=== PATIENT | male | born 1965 | race Caucasian/White ===

== ENCOUNTER 2023-03-28 19:04 | Inpatient (IN) | payer MEDICARE, SELFPAY ==
[2023-03-28] VITALS (19 sets, daily range): BP systolic 101–134; BP diastolic 63–92; PULSE 84–101; RESP 16–33; TEMP 36.9; O2SAT 80–97
--- NOTE | 2023-03-28 21:45 | DI.RAD_ITS ---
Exam(s) XR KNEE RT 3V AP,LAT,JACK EXAM: XR KNEE RT 3V AP,LAT,JACK CLINICAL HISTORY: Right knee pain. TECHNIQUE: 2D digital imaging was performed. COMPARISON: No exams were available for comparison FINDINGS: 3 views There is a right knee prosthesis which appears intact. No fracture or loosening. No evidence of ost eomyelitis. No osseous lesions. IMPRESSION: No fracture. Intact prosthesis. DATA REPOSITORY: RADIATION DOSE DELIVERED:
--- NOTE | 2023-03-28 21:58 | ED.GENADUL_ITS ---
Discharge Plan Disposition Patient Disposition: Admit to [facility] Discharge Details Clinical Impression: Rhabdomyolysis, Decubitus ulcer of sacral area, Right foot ulcer Admit Date/Time: 03/29/23 00:29 Admit Provider: Torrey Leach Attending Provider: Torrey Leach Primary Care Provider: Baron Barbour ED Provider: Cayden Clayton Medical Decision Making This is an unwell appearing mildly tachycardic but normothermic 57-year-old male with multiple bruises and recent ED evaluation at [facility] now with difficulty ambulating. There was reportedly concern at the care bed where patient was initially seen that he was not appropriate for placement. Given unknown baseline will obtain basic labs and chest x-ray. He has a right-sided knee scar. He is moving his knee well so I am not concerned for septic joint. He is only oriented to person and time but not place. Will obtain dry CT head given concerns for acute encephalopathy versus dementia. He has had no tonic- clonic activity to suggest seizure so I do not feel he requires an EEG. He has no nuchal rigidity to suggest meningitis. Furthermore he is normothermic. No obvious neurological deficits to suggest CVA so I do not feel patient is a candidtate for tPA. Not reportedly an alcoholic and vitals are not consistent with acute withdrawal so I am not concerned for alcohol withdrawal. Will obtain twelve-lead ECG to assess for dysrhythmia. I considered renal failure. Will obtain labs. No agitated delirium to suggest serotonin syndrome. No clonus to suggest neuroleptic malignant syndrome. No calf pain to suggest DVT. Patient does have an open ulcer on the right side of his right foot. There does not appear to be superimposed cellulitis. I considered sepsis however patient does not appear septic and has no fevers so I did not order empiric antibiotics l actate nor blood cultures. There was no reported fall today so we will defer trauma scan given duration of time since patient fell. Will obtain CK to ensure that he does not have rhabdomyolysis. No pain out of proportion to suggest necrotizing soft tissue infection. No on valproate to suggest increased risk for hyperammonemia. 11:20 PM Comprehensive metabolic panel with very mild hypokalemia. CKD. No prior for comparison. Mildly elevated BUN. Mild hyperglycemia. No anion gap and normal bicarbonate. Not consistent with DKA. Reassuring LFTs. Negative troponin. Negative acetaminophen, salicylate, and ethanol. Mildly elevated TSH will wait for reflex to free T4. Venous blood gas with no acidemia nor hypercarpia. CK pending. CBC with mild macrocytic anemia. No leukocytosis. No thrombocytopenia. Patient was seen with neurology from [facility] at [facility] via a video assessment. They noted in their assessment extreme psychomotor retardation bordering on catatonia. Differential included drug overdose though urine drug screen was reported negative, severe mood disorder and they recommended psychiatric consultation. They advised CK level. They noted lowers concern for neuroleptic malignancy syndrome secondary to no dopamine receptor blocking drugs listed. No mild clonus to suggest serotonin syndrome. They noted [employer] infection could be possible but less likely. They also noted possible nutrition deficiency syndromes and they advised IV thiamine. They also reported that an EEG would be helpful. I will order thiamine. If patient is not able to pass an ambulatory trial in the ED he will likely require hospitalization for possibility of EEG. Patient also saw psychiatry while in the ED at [facility]. Psychiatry noted that the patient was on warfarin. I will add on INR. Psychiatry noted differential includes catatonia secondary to sedative hypnotic withdrawal versus unstable psychiatric illness versus due to general medical condition. P sychiatry mentioned that the patient does not meet involuntary hold criteria. They advised lorazepam 1 mg p.o. 3 times daily for ongoing management of catatonia/anxiety. They also advised 1 mg additional lorazepam p.o. 3 times daily as needed for breakthrough catatonia symptoms. They also advised Cymbalta 60 mg p.o. daily for anxiety depression. Restarting a lower dose of bupropion XL 300 mg p.o. daily for depression. Melatonin 6 mg p.o. nightly for sleep. Would consider low-dose Zyprexa 5 mg p.o. nightly to help with psychosis. They noted concern for Parkinson's disease and to avoid haloperidol and Risperdal. They did advise pramipexole 1 mg p.o. daily for Parkinson's disease, Aricept 10 mg p.o. daily for dementia and gabapentin 600 mg p.o. 3 times daily for anxiety neuropathic pain. CK returned at 1200 concerning for possibility of early rhabdomyolysis. We will give patient 1 L of crystalloid with NS and recheck basic metabolic panel and CK at 2 AM on 03/29. 12:20 AM Patient was unable to walk in the ED. We will reach out to the hospitalist with request for hospitalization. 12:32 AM I spoke with Dr. Leach who agreed graciously to accept the patient for hospitalization. He requested maintenance fluids at 150 cc/h. I made patient a full code. Knee films with no periprosthetic fractures. CT head w/no acute process. CXR with no infiltrate. Chronic conditions affecting the care of the patient: CKD, hypertension, hypothyroidism History obtained from an outside historian: Report from [facility] External record review: [facility] EMR with complete notes from neuro & psych Diagnostic interpretations performed by me: [Per my independent interpretation chest x-ray shows:] no acute infiltrate, hypoexpanded lungs Per my independent interpretation EKG shows: Sinus tachycardia rate of 100 with interventricular conduction delay. Left axis deviation. No signs of LVH based on voltage criteria in aVL. No acute injury pattern. T wave flattening. No prior for comparison. Suspect chest wall lead reversal secondary to abnormal R wave progression. Medications: lorazepam Social determinants of health affecting disposition: advanced dementia Management discussed with: hospitalist Treatment/interventions considered: transfer to [facility] but differed give concerns for rhambo Response to therapies provided: IV fluids in the ED HPI General Date/Time Provider Initiated Documentation: 03/28/23 21:40 . HPI Narrative: Patient is a 57-year-old male with a history of borderline personality disorder depression chronic benzodiazepine use CKD essential tremors prior DVT factor V Leiden GERD hypertension hyperlipidemia and hypothyroidism along with BRIGETTE arriving after attempted placement at a local [facility] bed in [facility] following transfer from [facility]. Providers at the [facility] were concerned that the patient could not ambulate and walk and was not appropriate to go to a [facility] bed. Patient reportedly had raspy voice on arrival when he reportedly could not ambulate to enter the facility. Patient is oriented to person and time but not place. Patient reports pain in his right knee. He has reported had a right knee surgery. He denies any cough shortness of breath. He was reportedly found down prior to his arrival at [facility]. He has had no nausea no vomiting or any fevers. He denies routine tobacco, ethanol, and illicits. Related Data Home Medications Medication Instructions Recorded Confirmed acetaminophen 650 mg tablet 1,300 mg PO Q8H PRN 03/29/23 03/29/23 amitriptyline 10 mg tablet 10 mg PO QHS 03/29/23 03/29/23 aripiprazole 20 mg tablet (Abilify) 20 mg PO DAILY 03/29/23 03/29/23 bupropion HCl 450 mg 24 hr tablet, 450 mg PO DAILY 03/29/23 03/29/23 extended release cholecalciferol (vitamin D3) 50 50 mcg PO DAILY 03/29/23 03/29/23 mcg (2,000 unit) tablet cyanocobalamin (vitamin B-12) 500 500 mcg PO DAILY 03/29/23 03/29/23 mcg tablet duloxetine 60 mg capsule,delayed 60 mg PO DAILY 03/29/23 03/29/23 release finasteride 5 mg tablet 5 mg PO DAILY 03/29/23 03/29/23 gabapentin 600 mg tablet 600 mg PO TID 03/29/23 03/29/23 levocetirizine 5 mg tablet 5 mg PO QPM 03/29/23 03/29/23 levothyroxine 75 mcg tablet 75 mcg PO DAILY 03/29/23 03/29/23 lorazepam 1 mg tablet (Ativan) 1.5 mg PO TID PRN 03/29/23 03/29/23 melatonin 3 mg tablet 6 mg PO HS 03/29/23 03/29/23 metoprolol succinate 25 mg 25 mg PO DAILY 03/29/23 03/29/23 tablet,extended release 24 hr (Toprol XL) olanzapine 5 mg tablet 5 mg PO QHS 03/29/23 03/29/23 omeprazole 40 mg capsule,delayed 40 mg PO DAILY 03/29/23 03/29/23 release pramipexole 1 mg tablet 1 mg PO QHS 03/29/23 03/29/23 tamsulosin 0.4 mg capsule (Flomax) 0.4 mg PO HS 03/29/23 03/29/23 warfarin 2.5 mg tablet See Rx Instructions .Route .COMPLEX 03/29/23 03/29/23 Allergies Allergy/AdvReac Type Severity Reaction Status Date / Time No Known Allergies Allergy Verified 03/29/23 02:30 General Stated Complaint: [facility] GLENDA: 3 PFSH All Active Problems (Updated 07/14/23 @ 08:55 by Cayden Clayton MD) Decubitus ulcer of sacral area (Acute) Right foot ulcer (Acute) Hypokalemia (Acute) Dehydration (Acute) Hypothyroidism (acquired) (Chronic) Mood disorder (Chronic) History of arthroplasty (Acute) Right knee Tremor due to disorder of central nervous system (Acute) Falls frequently (Chronic) Rhabdomyolysis (Acute) Social History Smoking/Tobacco Use Status: Never Smoking risk assessment performed?: Yes Alcohol Intake: never Substance use type: does not use Housing: apartment Exam Narrative Exam Narrative: General: Chronically appearing ill patient is lying on his back with his head tilted in the air in no acute distress speaking in complete sentences. He has somewhat raspy respirations. Protecting his airway. Head: Normocephalic, atraumatic. Eye: Pupils equal, round reactive to light. Extraocular eye movements intact. No conjunctival injection. No scleral icterus. Ear, nose, mouth, throat: Grossly normal inspection. Normal voice, handling secretions normally. Neck: Trachea midline. No midline cervical spinal tenderness. Cardiovascular: Well-perfused distal extremities. Regular rate and rhythm. Respiratory: Nonlabored respiration. Clear lungs bilaterally. Back: Stage 1 sacral decubitus ulcer Gastrointestinal: Nondistended abdomen. Musculoskeletal: Diffuse ecchymoses to the left hip and buttocks. No midline thoracic nor lumbar spinal tenderness. Midline scar to right knee. Slightly limited range of motion right knee. No significant erythema. On the lateral aspect of the patient's right foot underneath a Mepilex dressing there is an approximately 1 and half centimeter open ulcerated area. No surrounding erythema. No foul-smelling nor purulent drainage. Skin: Normal for age and race, grossly normal temperature and turgor. No acute rash. Neurologic: Alert to person and time but not place. GCS 14: E4, V4, M6. No acute deficits. Moving all 4 extremities spontaneously. Psychiatric: Flat affect. No pressured speech. No suicidal nor homicidal ideation. Course Vital Signs Vital signs: Vital Signs Temperature 36.9 C 03/28/23 19:13 Pulse 97 H 03/28/23 19:13 Respiratory Rate 16 03/28/23 19:13 Blood Pressure 101/67 03/28/23 19:13 Pulse Oximetry 97 03/28/23 19:13 Temperature 36.9 C 03/28/23 19:13 Temperature Source Temporal Artery Scan 03/28/23 19:13 Pulse 101 H 03/28/23 21:31 Respiratory Rate 16 03/28/23 20:41 Respiratory Effort Normal, Non-Labored 03/28/23 20:41 Respiratory Depth Normal 03/28/23 20:41 Respiratory Pattern Normal 03/28/23 20:41 Blood Pressure 125/63 03/28/23 21:31 Blood Pressure Mean 78 03/28/23 21:31 Blood Pressure Position Sitting 03/28/23 19:13 Pulse Oximetry 91 L 03/28/23 21:07 Oxygen Delivery Method Room Air 03/28/23 19:13 Oxygen Flow Rate 0 03/28/23 19:13 Pain Level 5 03/28/23 19:13
--- NOTE | 2023-03-28 21:58 | NUR.NOTE ---
Nursing Note: Report to Stephani BUCKNER
--- NOTE | 2023-03-28 22:00 | DI.RAD_ITS ---
Exam(s) XR PORTABLE CHEST AP EXAM: XR PORTABLE CHEST AP CLINICAL HISTORY: Shortness of breath. TECHNIQUE: 2D digital imaging was performed. COMPARISON: No exams were available for comparison FINDINGS: Single AP portable view. Suboptimal inspiratory effort. Heart size is upper normal. The mediastinum is not widened. Lungs are clear. No infiltrates nor obvious pleural effusions. IMPRESSION: No acute pulmonary findings on this single AP portable view of the chest. DATA REPOSITORY: RADIATION DOSE DELIVERED:
--- NOTE | 2023-03-28 22:15 | RT.EKG_ITS ---
APPROVED REPORT Exam: Resting ECG Reason for Exam: Altered mental status Patient Location: I HR:100 bpm ECG Measurements Heart Rate 100 AXIS TX 141 P 33 QRSd 102 QRS -38 QT 340 T 89 QTc 439 Conclusion Sinus tachycardia...rate> 99 Left axis deviation...QRS axis (-30,-90) Sinus tachycardia rate of 100 with interventricular conduction delay. Left axis deviation. No signs of LVH based on voltage criteria in aVL. No acute injury pattern. T wave flattening. No prior for comparison. Suspect chest wall lead reversal secondary to abnormal R wave progression.
--- NOTE | 2023-03-28 22:15 | DI.CT_ITS ---
Exam(s) CT HEAD WO EXAM: CT HEAD WO CLINICAL HISTORY: Altered mental status. TECHNIQUE: Imaging Protocol: Axial computed tomography images with coronal and sagittal reformatted images were created and reviewed COMPARISON: No exams were available for comparison FINDINGS: There are no skull fractures. Post inflammatory retention cysts noted in left maxillary sinus. No as sociated fluid level. Milder mucosal thickening noted in the right maxillary sinus. Other paranasal sinuses are clear as are the mastoid air cells. There is no evidence of intracranial hemorrhage, mass effect, or shift of midline structures. There are no extra-axial fluid collections. The ventricles are not enlarged or shifted and there is no blo od within the ventricular system nor within the basal cisterns. IMPRESSION: No acute intracranial findings on this noninfused CT scan of the brain. Mild sinus findings as above. RADIATION DOSE DELIVERED: 886.02mGy.cm Total DLP DATA REPOSITORY: All CT scans at this facility are submitted to the National Radiology Data Registry (NRDR) Dose Index Registry (DIR) with the [employer] (A[employer]). RADIATION OPTIMIZATION: All CT scans at this facility use at least one of these dose optimization te chniques: automated exposure control; mA and/or kV adjustment per patient size (includes targeted exa ms where dose is matched to clinical indication); or iterative reconstruction.
[2023-03-28 22:39] LABS: BE (Venous) 3 mmol/L (-2-3); HCO3 (Venous) 28 mmol/L (23-28); O2 Sat (Venous) 51 %; TCO2 (Venous) 26 mmol/L (24-29); pCO2 (Venous) 49 mmHg (41-51); pH (Venous) 7.37 (7.31-7.41); pO2 (Venous) 28 mmHg
[2023-03-28 22:41] LABS: Abs Immature Grans 0.04 10^3/uL (0.0-0.06); Absolute Basophil Count 0.03 10^3/uL (0.0-0.2); Absolute Lymphocyte Count 1.42 10^3/uL (1.2-3.4); Basophils % 0.2; Eosinophils % 1.3; HCT 34.4 % (40.0-50.0); HGB 10.7 g/dL (13.5-17.5); Immature Grans % 0.3; Lymphocytes % 11.2; MCH 29.7 pg (27.0-33.0); MCHC 31.1 % (32.0-36.0); MCV 96 fL (80-95); MPV 10.5 fL (8.0-11.0); Monocytes % 5.5; Neutrophils % 81.5; Platelet Count 267 10^3/uL (130-400); RDW 13.7 % (11.8-14.1); RDW-SD 47.8 fL; WBC 12.65 10^3/uL (4.4-10.8)
[2023-03-28 22:42] LABS: Absolute Eosinophil Count 0.16 10^3/uL (0.0-0.7); Absolute Neutrophil Count 10.31 10^3/uL (1.2-6.7)
[2023-03-28 22:56] LABS: Salicylate < 2.8 mg/dL (<2.8)
[2023-03-28 22:58] LABS: Acetaminophen < 2 ug/mL (10-30)
[2023-03-28 23:01] LABS: ALT 27 U/L (16-63); AST 61 U/L (15-37); Albumin 2.2 g/dL (3.4-5.0); Alkaline Phosphatase 66 U/L (46-116); Anion Gap 8.9 mmol/L (3-11); BUN 35 mg/dL (7-18); Bilirubin, Total 0.9 mg/dL (0.2-1.0); CO2 28.1 mmol/L (21.0-32.0); CREATININE 1.8 mg/dL (0.70-1.30); Calcium 8.5 mg/dL (8.5-10.1); Chloride 104 mmol/L (98-107); Estimated GFR 43.09 (mL/min/1.73m2); Glucose 139 mg/dL (74-106); Potassium 3.4 mmol/L (3.5-5.1); Sodium 141 mmol/L (136-145); Total Protein 6.6 g/dL (6.4-8.2)
[2023-03-28 23:06] LABS: TSH (W/Ref FT4) 5.94 uIU/mL (0.36-3.74); Troponin I < 50 ng/L (<or=60)
[2023-03-28 23:08] LABS: ETHANOL BLOOD < 3.0 mg/dL (<10)
[2023-03-28 23:32] LABS: FREE T4 1.35 ng/dL (0.76-1.46)
[2023-03-28 23:33] LABS: Creatine Kinase 1204 U/L (39-308)
[2023-03-28 23:48] LABS: Prothrombin Time 10.4 sec (9.3-11.0)
[2023-03-28] MEDS: Normal Saline 1,000 ML 1000 ML IV (23:49)
[2023-03-29] VITALS (41 sets, daily range): BP systolic 110–162; BP diastolic 66–83; PULSE 79–115; RESP 18–43; TEMP 36.4–36.8; O2SAT 90–99
--- NOTE | 2023-03-29 00:06 | DI.VRAD_ITS ---
PROCEDURE INFORMATION: Exam: CT Head Without Contrast Exam date and time: 03/28/2023 11:19 PM Age: 57 years old Clinical indication: Other: Altered mental status TECHNIQUE: Imaging protocol: Computed tomography of the head without contrast. Radiation optimization: All CT scans at this facility use at least one of these dose optimization techniques: automated exposure control; mA and/or kV adjustment per patient size (includes targeted exams where dose is matched to clinical indication); or iterative reconstruction. COMPARISON: No relevant prior studies available. FINDINGS: Brain: Mild volume loss No hemorrhage. Unremarkable white matter. No mass effect. Cerebral ventricles: No ventriculomegaly. Paranasal sinuses: A polyp/retention cyst is noted in the left maxillary sinus.No fluid levels. Mastoid air cells: Visualized mastoid air cells are well aerated. Bones/joints: Unremarkable. No acute fracture. Soft tissues: Unremarkable. IMPRESSION: No acute intracranial abnormality. Dictated and Authenticated by: Thor Paulson MD. Ordering:BERLIN Rodarte MD
--- NOTE | 2023-03-29 00:07 | DI.VRAD_ITS ---
PROCEDURE INFORMATION: Exam: XR Chest Exam date and time: 03/28/2023 11:24 PM Age: 57 years old Clinical indication: Shortness of breath TECHNIQUE: Imaging protocol: Radiologic exam of the chest. Views: 1 view. COMPARISON: No relevant prior studies available. FINDINGS: Lungs: Low lung volumes. No consolidation Pleural spaces: No pleural effusion. No pneumothorax. Heart/Mediastinum: No cardiomegaly. Bones/joints: Unremarkable. Distended bowel loops in the upper and mid abdomen IMPRESSION: Expiratory technique without discrete consolidation Distended bowel loops which may represent ileus versus developing partial small bowel obstruction Dictated and Authenticated by: Thor Paulson MD. Ordering:BERLIN Rodarte MD
--- NOTE | 2023-03-29 00:08 | DI.VRAD_ITS ---
PROCEDURE INFORMATION: Exam: XR Right Knee Exam date and time: 03/28/2023 11:26 PM Age: 57 years old Clinical indication: Pain; Knee; Right; Additional info: Right knee pain TECHNIQUE: Imaging protocol: Radiologic exam of the right knee. Views: 3 views. COMPARISON: No relevant prior studies available. FINDINGS: Bones/joints: Total knee arthroplasty, grossly intact. Small joint effusion. No acute fracture or dislocation Soft tissues: Mild suprapatellar swelling IMPRESSION: Small joint effusion and mild suprapatellar swelling No radiographic evidence for hardware complication Dictated and Authenticated by: Thor Paulson MD. Ordering:BERLIN Rodarte MD
[2023-03-29] MEDS: THIAMINE 500 MG in Normal Saline 100 ML 200 MG IVPB ×3 (00:29→18:52)
[2023-03-29] MEDS: LORazepam 1 MG TAB PO ×3 (00:34→19:47)
[2023-03-29 01:00] LABS: Abs Immature Grans 0.04 10^3/uL (0.0-0.06); Absolute Basophil Count 0.03 10^3/uL (0.0-0.2); Absolute Eosinophil Count 0.19 10^3/uL (0.0-0.7); Absolute Lymphocyte Count 1.83 10^3/uL (1.2-3.4); Basophils % 0.2; Eosinophils % 1.5; HCT 31.3 % (40.0-50.0); HGB 9.8 g/dL (13.5-17.5); Immature Grans % 0.3; Lymphocytes % 14.6; MCH 30.1 pg (27.0-33.0); MCHC 31.3 % (32.0-36.0); MCV 96 fL (80-95); MPV 10.9 fL (8.0-11.0); Monocytes % 5.6; Neutrophils % 77.8; Platelet Count 264 10^3/uL (130-400); RBC 3.26 10^6/uL (4.36-5.78); RDW 13.7 % (11.8-14.1); RDW-SD 48.3 fL; WBC 12.52 10^3/uL (4.4-10.8)
[2023-03-29 01:01] LABS: Absolute Neutrophil Count 9.74 10^3/uL (1.2-6.7)
--- NOTE | 2023-03-29 01:10 | HPE_ITS ---
Date of service: 03/29/23 Time of Service: 01:10 Assessment and Plan Assessment and plan (1) Rhabdomyolysis: Start date: 03/29/23 Status: Acute Assessment and plan: This is a 57-year-old gentleman with frequent falls and presenting with bruising on his left side and sacral area and pubic area as well as an elevated CPK consistent with rhabdomyolysis. He will be treated with IV hydration also appearing to be slightly dehydrated. His unsteady gait appears to be a Parkinson's-like syndrome may be secondary to long-term psychiatric meds with neurology evaluation needed. He will be admitted for IV hydration and physical therapy with occupational therapy evaluation. He is a full code. (2) Falls frequently: Status: Chronic Assessment and plan: Patient is having a progressive ambulatory disease and need to be evaluated for possible Parkinson's type syndrome. He also may have catatonic state with his psychiatric disease and time by history though this is vague. Evaluation by PT and OT. (3) Dehydration: Start date: 03/29/23 Status: Acute Assessment and plan: Patient appears to be dehydrated but no comparison creatinine is available. Gentle IV hydration with potassium supplement as needed. (4) Hypokalemia: Start date: 03/29/23 Status: Acute Assessment and plan: Mild hypokalemia with potassium supplement and trend labs. (5) Tremor due to disorder of central nervous system: Status: Acute Assessment and plan: Patient does have Parkinson's-like appearance with rigidity and cogwheeling but neurology needs to evaluate and advise. CT of the head was unrevealing. (6) Mood disorder: Status: Chronic Assessment and plan: Obtain outpatient medication list and reconcile with continued treatment through this hospital stay. This needs to be reevaluated by neurology with his advancing Parkinson's type syndrome. (7) Hypothyroidism (acquired): Status: Chronic Assessment and plan: Elevated TSH indicating possible need for adjustment of outpatient supplement which can be reviewed once medication list is reconciled. History of Present Illness History of Present Illness Chief Complaint: Frequent falls at home failing assisted living environment. Narrative: This is a 57-year-old gentleman who recently was hospitalized at [facility] because of difficulty ambulating and was placed in a nursing home where he will need to be completely independent. He chronically has difficulty with ambulation because of stiffness and unstable gait with a Parkinson's-like synd emigdio which is advancing. He is seen by Dr. Barbour [facility]. He is currently on multiple psych medications and appears to have difficulty with independent living though he is his own decision maker as best can be sorted by minimal medical records. Most of his records are at [facility]. He does have a history of right knee replacement which has a slight effusion with his falls but no other findings on x-ray. He also has a open ulcer over his right foot which appears chronic to the ED physician and can be looked at by the wound team if needed. He obviously has chronic immobility issues with pressure sores as risk. The ED physician also mentioned that he carries a diagnosis of alcoholism chronically with does not appear to be drinking daily at this time living in a supervised home. He does have extensive bruising over his buttocks and left side though no acute injury by exam. ED evaluation mostly found in rhabdomyolysis with elevated CK the patient was initiated on IV fluid resus citation for this problem. Long-term he will be a placement problem with his immobility which is chronic and advancing with his Parkinson's-like syndrome as stated. He is a full code. Review of Systems Narrative: 13 point review of systems otherwise unrevealing, unobtainable with patient's chronic psychiatric disease or stable as best can be ascertained. Patient is a minimalist in conversation. [facility] All Active Problems (Updated 03/29/23 @ 06:14 by Torrey Leach) Hypokalemia (Acute) Dehydration (Acute) Hypothyroidism (acquired) (Chronic) Mood disorder (Chronic) History of arthroplasty (Acute) Right knee Tremor due to disorder of central nervous system (Acute) Falls frequently (Chronic) Rhabdomyolysis (Acute) Social History Smoking/Tobacco Use Status: Never Smoking risk assessment performed?: Yes Alcohol Intake: never Substance use type: does not use Housing: apartment Meds Allergies and Home Medications Allergies Allergy/AdvReac Type Severity Reaction Status Date / Time No Known Allergies Allergy Verified 03/29/23 02:30 Home Medications Medication Instructions Recorded Confirmed Type acetaminophen 650 mg tablet 1,300 mg PO Q8H PRN 03/29/23 03/29/23 History amitriptyline 10 mg tablet 10 mg PO QHS 03/29/23 03/29/23 History aripiprazole 20 mg tablet (Abilify) 20 mg PO DAILY 03/29/23 03/29/23 History bupropion HCl 450 mg 24 hr tablet, 450 mg PO DAILY 03/29/23 03/29/23 History extended release cholecalciferol (vitamin D3) 50 50 mcg PO DAILY 03/29/23 03/29/23 History mcg (2,000 unit) tablet cyanocobalamin (vitamin B-12) 500 500 mcg PO DAILY 03/29/23 03/29/23 History mcg tablet duloxetine 60 mg capsule,delayed 60 mg PO DAILY 03/29/23 03/29/23 History release finasteride 5 mg tablet 5 mg PO DAILY 03/29/23 03/29/23 History gabapentin 600 mg tablet 600 mg PO TID 03/29/23 03/29/23 History levocetirizine 5 mg tablet 5 mg PO QPM 03/29/23 03/29/23 History levothyroxine 75 mcg tablet 75 mcg PO DAILY 03/29/23 03/29/23 History lorazepam 1 mg tablet (Ativan) 1.5 mg PO TID PRN 03/29/23 03/29/23 History melatonin 3 mg tablet 6 mg PO HS 03/29/23 03/29/23 History metoprolol succinate 25 mg 25 mg PO DAILY 03/29/23 03/29/23 History tablet,extended release 24 hr (Toprol XL) olanzapine 5 mg tablet 5 mg PO QHS 03/29/23 03/29/23 History omeprazole 40 mg capsule,delayed 40 mg PO DAILY 03/29/23 03/29/23 History release pramipexole 1 mg tablet 1 mg PO QHS 03/29/23 03/29/23 History tamsulosin 0.4 mg capsule (Flomax) 0.4 mg PO HS 03/29/23 03/29/23 History warfarin 2.5 mg tablet See Rx Instructions .Route .COMPLEX 03/29/23 03/29/23 History Exam Narrative Exam Narrative: General: Patient appears older than stated age, moderately obese lying in bed with a masklike facies and minimal conversation. He is alert and oriented at least to person and place. He appears to be in no acute distress but chronically ill. HEENT: Normocephalic, face with masklike facies but atraumatic. Coarsened facial features. Eyes with pupils equal and react light symmetrically, extraocu lar movement intact and sclera anicteric. Oropharynx with dry mucosa and poor dentition. Neck: Supple without JVD. Back: Stooped posture without CVA tenderness. Bruising over the sacral area bilaterally. Lungs: Fair aeration clear to oscillation percussion. Heart: Regular rate and rhythm with no murmurs or gallops appreciated. Abdomen: Obese contour, soft and nontender to palpation with no palpable hepatosplenomegaly. Bowel sounds positive all quadrants. Bruising over the pubic area above the penis. Genitalia/rectal: Normal external genitalia with circumcised penis. Full exam not performed. As mentioned bruising over pubic area. Extremities: 2+ nonpitting edema lower extremities with ulcer as mentioned over right heel by ED physician. No clubbing or cyanosis. All joints have decreased range of motion with increased rigidity and stiffness but no joint swelling. Right knee does have post TKA scar. Extensive bruising over left lower extremity without induration or fluctuance. Left knee and hip have passive range of motion without tenderness. Skin: Extensive bruising as above, pale, warm and dry. Fair turgor. Neuro: Cranial nerves II through XII gross intact. No focalizing motor deficits but patient has decreased voluntary movement of her upper and lower extremities with almost cogwheel type rigidity with movement of larger joints and increased tone. No tremor at rest with patient having intentional tremor and stiffness with attempted movement. Several testing not performed patient examined in bed but patient states that he is very unstable with gait and falls. Romberg is obviously positive by history. Psych: Flattened affect with depressed mood. No abnormal thought processes manifest with patient at the moment in conversation. Remote and recent memory not testable with patient giving minimal history during exam. He does not know his present living situation and his PCPs name. Results Imaging Imaging Studies: Exam: CT Head Without Contrast Exam date and time: 03/28/2023 11:19 PM Age: 57 years old Clinical indication: Other: Altered mental status TECHNIQUE: Imaging protocol: Computed tomography of the head without contrast. Radiation optimization: All CT scans at this facility use at least one of these dose optimization techniques: automated exposure control; mA and/or kV adjustment per patient size (includes targeted exams where dose is matched to clinical indication); or iterative reconstruction. COMPARISON: No relevant prior studies available. FINDINGS: Brain:? Mild volume loss No hemorrhage. Unremarkable white matter. No mass effect. Cerebral ventricles: No ventriculomegaly. Paranasal sinuses: A polyp/retention cyst is noted in the left maxillary sinus.No fluid levels. Mastoid air cells: Visualized mastoid air cells are well aerated. Bones/joints: Unremarkable. No acute fracture. Soft tissues: Unremarkable. IMPRESSION: No acute intracranial abnormality. Exam: XR Chest Exam date and time: 03/28/2023 11:24 PM Age: 57 years old Clinical indication: Shortness of breath TECHNIQUE: Imaging protocol: Radiologic exam of the chest. Views: 1 view. COMPARISON: No relevant prior studies available. FINDINGS: Lungs:? Low lung volumes.? No consolidation Pleural spaces: No pleural effusion. No pneumothorax. Heart/Mediastinum: No cardiomegaly. Bones/joints: Unremarkable. Distended bowel loops in the upper and mid abdomen IMPRESSION: Expiratory technique without discrete consolidation Distended bowel loops which may represent ileus versus developing partial small bowel obstruction Exam: XR Right Knee Exam date and time: 03/28/2023 11:26 PM Age: 57 years old Clinical indication: Pain; Knee; Right; Additional info: Right knee pain TECHNIQUE: Imaging protocol: Radiologic exam of the right knee. Views: 3 views. COMPARISON: No relevant prior studies available. FINDINGS: Bones/joints:? Total knee arthroplasty, grossly intact. Small joint effusion.? No acute fracture or dislocation Soft tissues:? Mild suprapatellar swelling IMPRESSION: Small joint effusion and mild suprapatellar swelling No radiographic evidence for hardware complication Labs 03/29/23 00:18 03/29/23 02:40 Labs: Laboratory Results - last 24 hr 03/28/23 03/28/23 03/28/23 22:33 22:33 22:33 WBC 12.65 H RBC 3.60 L Hgb 10.7 L Hct 34.4 L MCV 96 H MCH 29.7 MCHC 31.1 L RDW 13.7 Plt Count 267 MPV 10.5 Immature Gran % 0.3 Neutrophils % 81.5 Lymphocytes % 11.2 Monocytes % 5.5 Eosinophils % 1.3 Basophils % 0.2 Nucleated RBC % 0.0 Absolute Neutrophils 10.31 H Absolute Lymphocytes 1.42 Absolute Monocytes 0.70 Absolute Eosinophils 0.16 Absolute Basophils 0.03 PT INR VBG pH VBG pCO2 VBG pO2 VBG HCO3 VBG Total CO2 VBG O2 Saturation VBG Base Excess Sodium 141 Potassium 3.4 L Chloride 104 Carbon Dioxide 28.1 Anion Gap 8.9 BUN 35 H Creatinine 1.8 H Est GFR (CKD-EPI 2020) 43.09 Glucose 139 H Calcium 8.5 Total Bilirubin 0.9 AST 61 H ALT 27 Alkaline Phosphatase 66 Creatine Kinase 1204 H Troponin I < 50 Total Protein 6.6 Albumin 2.2 L TSH 5.94 H Free T4 1.35 Salicylates Acetaminophen Ethyl Alcohol < 3.0 03/28/23 03/28/23 03/28/23 22:33 22:33 22:33 WBC RBC Hgb Hct MCV MCH MCHC RDW Plt Count MPV Immature Gran % Neutrophils % Lymphocytes % Monocytes % Eosinophils % Basophils % Nucleated RBC % Absolute Neutrophils Absolute Lymphocytes Absolute Monocytes Absolute Eosinophils Absolute Basophils PT 10.4 INR 1.0 VBG pH 7.37 VBG pCO2 49 VBG pO2 28 VBG HCO3 28 VBG Total CO2 26 VBG O2 Saturation 51 VBG Base Excess 3 Sodium Potassium Chloride Carbon Dioxide Anion Gap BUN Creatinine Est GFR (CKD-EPI 2020) Glucose Calcium Total Bilirubin AST ALT Alkaline Phosphatase Creatine Kinase Troponin I Total Protein Albumin TSH Free T4 Salicylates < 2.8 Acetaminophen < 2 Ethyl Alcohol 03/29/23 00:18 WBC 12.52 H RBC 3.26 L Hgb 9.8 L Hct 31.3 L MCV 96 H MCH 30.1 MCHC 31.3 L RDW 13.7 Plt Count 264 MPV 10.9 Immature Gran % 0.3 Neutrophils % 77.8 Lymphocytes % 14.6 Monocytes % 5.6 Eosinophils % 1.5 Basophils % 0.2 Nucleated RBC % 0.0 Absolute Neutrophils 9.74 H Absolute Lymphocytes 1.83 Absolute Monocytes 0.70 Absolute Eosinophils 0.19 Absolute Basophils 0.03 PT INR VBG pH VBG pCO2 VBG pO2 VBG HCO3 VBG Total CO2 VBG O2 Saturation VBG Base Excess Sodium Potassium Chloride Carbon Dioxide Anion Gap BUN Creatinine Est GFR (CKD-EPI 2020) Glucose Calcium Total Bilirubin AST ALT Alkaline Phosphatase Creatine Kinase Troponin I Total Protein Albumin TSH Free T4 Salicylates Acetaminophen Ethyl Alcohol Last Vital Signs Temp 36.9 C 03/28/23 19:13 Pulse 98 H 03/28/23 23:00 Resp 37 H 03/29/23 01:00 BP 134/69 03/28/23 23:00 Pulse Ox 92 03/28/23 23:50 Time Spent Time spent with Patient: >75 minutes Time was spent: preparing to see the patient(eg.review tests), obtaining and/or reviewing separately otained hiistory, ordering medications,tests, procedures, referring, communicating with other health career resource specialist, indepentently interpreting results and care coordination
--- NOTE | 2023-03-29 01:22 | NUR.NOTE ---
med rec line used. high census.Nursing Note:
[2023-03-29] MEDS: Normal Saline 1,000 ML 150 ML IV (01:30)
--- NOTE | 2023-03-29 02:49 | TELEP.MEDR_ITS ---
Date of service: 03/29/23 [facility]: [facility] Allergies Allergies: No Known Allergies Allergy (Verified 03/29/23 02:30) Interview Person Interviewed: * Discharged summary and MAR (03/28/23) from [facility] Quality Quality of Interview/Accuracy of Medication List: Excellent Sources Sources used to compile medication list: [facility] Medication List, MAR, SureScripts and Other Changes made to Home Medication List: ADDITIONS: * Gabapentin 600mg PO TID * Flomax 0.4mg PO HS * Warfarin 2.5mg on Mon,Wed, Sat and 5mg on ,,Sat, and Sun * Vitamin D 2000 units PO daily * Vitamin B12 500mcg PO daily * Omeprazole 40mg PO daily * Bupropion XL 400mg PO daily * Pramipexole 1mg PO HS * Toprol XL 25mg PO daily * Melatonin 6mg PO HS * levothyroxine 75mcg PO daily * Olanzapine 5mg PO HS * Duloxetine 60mg PO daily (decreased from previous dose of 90mg daily) * Finasteride 5mg PO daily * Levocetirizine 5mg PO HS * Ativan 1.5mg PO TID anxiety (increased from previous dose of 1mg PO TID PRN) * Tylenol 1300mg PO Q8H PRN * Amitriptyline 10mg PO HS * Abilify 20mg PO HS (increased from previous dose of 10mg HS) DELETIONS: * none CHANGES: * none Additional Notes Additional Notes: * none Recommended Changes Recommended Changes(reason for recommendation): * none Attestation: The home medication list is now updated to the best of my knowledge and is ready to be reconciled by the provider. Please contact the [facility] Medication Reconciliation Pharmacist at for any questions.
--- NOTE | 2023-03-29 02:49 | TELEP.MEDREC ---
Date of service: 03/29/23 Time of Service: 02:50 Telepharmacy Home Med Rec Allergies Allergies: No Known Allergies Allergy (Verified 03/29/23 02:30) Interview Person Interviewed: Discharged summary and MAR (03/28/23) from [facility] Quality Quality of Interview/Accuracy of Medication List: Excellent Sources Sources used to compile medication list: [facility] Medication List, MAR, SureScripts and Other Changes made to Home Medication List: ADDITIONS: Gabapentin 600mg PO TID Flomax 0.4mg PO HS Warfarin 2.5mg on Mon,Wed, Sat and 5mg on ,,Sat, and Sun Vitamin D 2000 units PO daily Vitamin B12 500mcg PO daily Omeprazole 40mg PO daily Bupropion XL 400mg PO daily Pramipexole 1mg PO HS Toprol XL 25mg PO daily Melatonin 6mg PO HS levothyroxine 75mcg PO daily Olanzapine 5mg PO HS Duloxetine 60mg PO daily (decreased from previous dose of 90mg daily) Finasteride 5mg PO daily Levocetirizine 5mg PO HS Ativan 1.5mg PO TID anxiety (increased from previous dose of 1mg PO TID PRN) Tylenol 1300mg PO Q8H PRN Amitriptyline 10mg PO HS Abilify 20mg PO HS (increased from previous dose of 10mg HS) DELETIONS: none CHANGES: none Additional Notes Additional Notes: none Recommended Changes Recommended Changes(reason for recommendation): none Attestation: The home medication list is now updated to the best of my knowledge and is ready to be reconciled by the provider. Please contact the [facility] Medication Reconciliation Pharmacist at for any questions.
[2023-03-29 03:13] LABS: Anion Gap 7.7 mmol/L (3-11); BUN 34 mg/dL (7-18); CO2 23.3 mmol/L (21.0-32.0); CREATININE 1.5 mg/dL (0.70-1.30); Calcium 8.3 mg/dL (8.5-10.1); Chloride 107 mmol/L (98-107); Estimated GFR 53.63 (mL/min/1.73m2); Glucose 122 mg/dL (74-106); Potassium 3.4 mmol/L (3.5-5.1); Sodium 138 mmol/L (136-145)
[2023-03-29 03:17] LABS: Creatine Kinase 1094 U/L (39-308)
[2023-03-29 03:21] LABS: Troponin I < 50 ng/L (<or=60)
[2023-03-29 04:53] LABS: C Diff PCR Negative (Negative)
[2023-03-29] MEDS: Heparin 5,000 UNITS/ML VIAL 5000 UNITS SC ×3 (05:39→22:44)
[2023-03-29 06:23] LABS: HCT 28.6 % (40.0-50.0); HGB 9.1 g/dL (13.5-17.5); MCH 30.5 pg (27.0-33.0); MCHC 31.8 % (32.0-36.0); MCV 96 fL (80-95); MPV 10.8 fL (8.0-11.0); Platelet Count 221 10^3/uL (130-400); RBC 2.98 10^6/uL (4.36-5.78); RDW 13.8 % (11.8-14.1); RDW-SD 48.6 fL; WBC 10.71 10^3/uL (4.4-10.8)
[2023-03-29 06:39] LABS: ALT 24 U/L (16-63); AST 57 U/L (15-37); Albumin 2.1 g/dL (3.4-5.0); Alkaline Phosphatase 61 U/L (46-116); Anion Gap 6.3 mmol/L (3-11); BUN 31 mg/dL (7-18); Bilirubin, Total 0.9 mg/dL (0.2-1.0); CO2 28.7 mmol/L (21.0-32.0); CREATININE 1.5 mg/dL (0.70-1.30); Calcium 8.2 mg/dL (8.5-10.1); Chloride 107 mmol/L (98-107); Estimated GFR 53.63 (mL/min/1.73m2); Glucose 122 mg/dL (74-106); Magnesium 1.9 mg/dL (1.8-2.4); Sodium 142 mmol/L (136-145); Total Protein 6.1 g/dL (6.4-8.2)
[2023-03-29 06:52] LABS: Creatine Kinase 1118 U/L (39-308)
--- NOTE | 2023-03-29 06:58 | NUR.NOTE ---
Pt admitted with Rhabdo, falls, weakness. Bruises present on lower back, leg leg, left groin. Duoderm present on right hip. Pt was inc 2 l;arge bm's overnight. c-diff sample sent and it was negative. vss, afebrile. ivf infusing. bed alarm on. SR on tele
--- NOTE | 2023-03-29 08:31 | IN_ITS ---
PT Notes Visit Reasons: Rhabdomyolysis Inpatient Physical Therapy Evaluation Date: 03/29/23 Referring Doctor: Dr. Leach PT Orders: PT CONSULT: limited abiltiy to ambulate Precautions: fall Patient Profile/Admitting Diagnosis: Patient admitted 03/28/23 due to weakness and imbalance. Medical workup ongoing. Social History/Home Situation: Patient reports that he lives in a trailer in [place] by himself. He has been working towards moving into a jail, where he needs to be independent with his mobility. He has a walker, but unclear how consistently he's been using this and for how long. He has a case management specialist that he works with to address his needs. Equipment Owned/DME: [facility] Subjective: Jarad states that he's always gotten around independently. He's noticed increasing difficulty walking over the past several weeks. He's had 2-3 falls, the last one while just walking down the hallway. States that he feels shaky and weak. Objective: General Observation: Resting in bed with IV in LUE. Telemetry in place. No additional lines. Mental Status: A&Ox3. Provides vague history. Flat affect. Pain: right sided neck pain, unable to quantify. Feels stiff. ROM: Right Upper Extremity: Shoulder flexion 120*. Elbow motion lacks 10* extension, otherwise WFL. Left Upper Extremity: Shoulder flexion 135*. Elbow motion lacks 10* extension, o therwise WFL. Right Lower Extremity: Grossly WFL Left Lower Extremity: Grossly WFL Strength: Right Upper Extremity: Shoulder flexion 3-/5. Biceps 4-/5. Triceps 4-/5. Director Religious Education weak but equal. Left Upper Extremity: Shoulder flexion 3-/5. Biceps 4-/5. Triceps 4-/5. Director Religious Education weak but equal. Right Lower Extremity: Hip flexion 4/5. Quads 4/5. Ankle DF 4+/5. Left Lower Extremity: Hip flexion 4/5. Quads 4/5. Ankle DF 4/5. Sensation: intact distally. He does have Mepilex bandage in place at the base of the 5th metatarsal on the right. Scabbed wound in same area on the left. Bed Mobility/Transfers: supine-sit: supervision, with increased time to perform sit-stand: mod A, with increased time to perform and cues for technique and amplitude of movement stand-sit: CGA, with poorly controlled descent Gait: Ambulates 6' with FWW, mod A a the trunk. Demonstrates ataxia during ambulation, with requirement of trunk support throughout. Balance: Static Sitting: good Dynamic Sitting: fair Static Standing: fair Dynamic Standing: poor Coordination: impaired with rapid alternating movements of LEs>UEs Heel to Calderon: impaired bilat Thumb to Digit Tapping: poor accuracy and increasing tremor Visual Tracking WNL Saccades: normal Special Tests: Mobility Limitations Standardized Measure [facility]-PAC 6 clicks Basic Mobility Inpatient Short Form: Raw Score: 19 CMS Score: 42% impairment Informed Consent/Education: Patient instructed in purpose of PT consult and plan of care. Treatment: Today's session consisted of evaluation, followed by treatment as noted below. Discussed appropriate treatment planning, with patient verbalizing agreement. Initial Evaluation (35402) Therapeutic Exercises ([id number]): Instructed in sitting exercises for completion between PT sessions: seated november x 10 LAQ x 10 heel raises (seated) x 10 punch ups x 10 Sit to stand x 3, mod A Assessment: Patient is a 57 year old male referred to physical therapy services with the diagnosis of limited ability to ambulate. Patient presents with clinical signs and symptoms consistent with gait and balance impairments, as demonstrated by the following impairment level findings: 1. Decreased UE strength 2. Decreased LE strength 3. Decreased balance 4. gait impairments 5. bradykinesia Impairments are contributing to the following functional limitations: 1. gait impairments 2. high fall risk 3. unable to transfer independently 4. unable to ambulate independently Patient is assessed as Moderate 30939 complexity based on the following: History: Patient is a 57 year old male presenting with insidious onset imbalance and gait impairments. He demonstrates global weakness and bradykinesia, with question of underlying Parkinson's disease. Patient is a poor historian, however it sounds as though his mobility has declined somewhat suddenly. Discharge planning will be largely dependent medical prognosis; he is not safe to ambulate independently at this time, and may require SNF vs remote computer terminal operator placement if progressive conditions are identified. Examination: functional limitations noted above Presentation: evolving Decision Making: moderate complexity Goals: Goals X1 week 1. Supine-Sit: supervision 2. Sit-Supine : supervision 3. Sit-Stand : supervision 4. Stand-Sit : supervision 5. Bed-Chair : supervision with FWW 6. Chair-Bed : supervision with FWW 7. Gait : supervision with FWW x 50' 8. Stairs : supervision x 5 steps with bilat rails Plan of Care/Treatment Plan: 1-2x/day, 7 days/week x 1 week. Plan of care has been reviewed with the MOBILE QA TESTER providing the service under Physical Therapy direction. Initiate Physical Therapy intervention for strengthening, bed mobility, transfers, gait, stairs, balance training, use of assistive device. DISCHARGE RECOMMENDATIONS: SNF versus LTC based on ability to participate and progress TREATMENT CODE/TIME: 84579, 02241, 8:00-8:35 Nichelle Martin, PT, DPT [facility] All Active Problems (Updated 03/29/23 @ 08:55 by Cayden Clayton MD) Decubitus ulcer of sacral area (Acute) Right foot ulcer (Acute) Hypokalemia (Acute) Dehydration (Acute) Hypothyroidism (acquired) (Chronic) Mood disorder (Chronic) History of arthroplasty (Acute) Right knee Tremor due to disorder of central nervous system (Acute) Falls frequently (Chronic) Rhabdomyolysis (Acute)
[2023-03-29] MEDS: POTASSIUM CHLORIDE 10 MEQ/100 ML BAG 100 MEQ IVPB (08:38)
[2023-03-29] MEDS: Lactated Ringers 1,000 ML 200 ML IV ×2 (08:38→14:02)
[2023-03-29] MEDS: Omeprazole 20 MG CAPCR 40 MG PO (08:40)
[2023-03-29] MEDS: buPROPion-XL 150 MG TABCR 450 MG PO (08:40)
[2023-03-29] MEDS: Levothyroxine 75 MCG TAB PO (08:40)
[2023-03-29] MEDS: LORazepam 1 MG TAB 1.5 MG PO (08:41)
[2023-03-29] MEDS: DULoxetine 30 MG CAP 60 MG PO (08:41)
[2023-03-29] MEDS: Cholecalciferol (Vitamin D3) 1,000 UNIT TAB 2000 UNITS PO (08:42)
[2023-03-29] MEDS: Metoprolol CR 25 MG TABCR PO (08:42)
[2023-03-29] MEDS: Gabapentin 600 MG TAB PO ×3 (08:42→19:35)
[2023-03-29] MEDS: Cyanocobalamin 500 MCG TAB PO (08:42)
[2023-03-29] MEDS: Finasteride 5 MG TAB PO (08:42)
[2023-03-29] MEDS: Potassium Chloride 10 MEQ CAPCR 20 MEQ PO ×4 (08:42→19:36)
--- NOTE | 2023-03-29 09:33 | PDOC.CMIN ---
Date of service: 03/29/23 Time of Service: 09:40 Care Management Initial Assmt Initial Assessment REASON FOR HOSPITALIZATION:: Rhabdomyolysis PREVIOUS FUNCTIONAL STATUS/SOCIAL/FAMILY SUPPORTS:: Jarad lives in [place], alone. 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 He stated that his father also lives in [place]. Jarad reported that prior to his recent hospitalization at [facility], he had been independent with ADL's. CURRENT FUNCTIONAL STATUS:: Jarad was sitting up in his chair when CM met with him. He stated that he is feeling ok today. He reported that he was transported to the Care Bed, but was not accepted there, and he was then transported to [facility] in [facility]. From there he went to the ED, and was admitted overnight. He worked with PT today, who recommended SNF for short term rehab. He stated that he would prefer to be in the [place] area for rehab, and referrals were sent to [facility] and [facility], at his request. CM will connect with his TEMPORARY ADMINISTRATIVE ASSISTANT therapeutic case manager to discuss his discharge plans and make recommendations for shelter planning. CM will continue to follow. ADVANCE DIRECTIVES:: On file; Shaheen Brown (father) listed as HCA; Suad (sister) listed as alternate HCA. Has patient been provided with info about the portal/API?: Yes Did the patient sign up for the portal?: No CODE STATUS:: Full Code INSURANCE COVERAGE / FINANCIAL ISSUES:: [facility] CURRENT HOME/COMMUNITY SERVICES/EQUIPMENT:: TEMPORARY ADMINISTRATIVE ASSISTANT- [place] PRIMARY CARE PHYSICIAN:: Baron Barbour POTENTIAL DISCHARGE NEEDS:: Evaluations for further needs, follow up appointments. PATIENT/FAMILY EDUCATION NEEDS:: Review discharge instructions and limitations, discussion of self care needs including ask me three. ANTICIPATED BARRIERS TO DISCHARGE:: Possible SNF placement; [facility] primary insurance with no secondary TRANSPORTATION:: Dependent on disposition PLAN:: Anticipate Jarad will return home vs SNF once medically cleared. His transportation will depend on his disposition, which is unclear at this time. He will follow up with his PCP and discharge plan of care. CM will continue to follow. PFSH All Active Problems (Updated 03/29/23 @ 08:55 by Cayden Clayton MD) Decubitus ulcer of sacral area (Acute) Right foot ulcer (Acute) Hypokalemia (Acute) Dehydration (Acute) Hypothyroidism (acquired) (Chronic) Mood disorder (Chronic) History of arthroplasty (Acute) Right knee Tremor due to disorder of central nervous system (Acute) Falls frequently (Chronic) Rhabdomyolysis (Acute) Social History Smoking/Tobacco Use Status: Never Smoking risk assessment performed?: Yes Alcohol Intake: never Substance use type: does not use Housing: apartment
[2023-03-29] MEDS: Acetaminophen 325 MG TAB PO ×2 (10:28→16:27)
[2023-03-29 14:40] LABS: Creatine Kinase 916 U/L (39-308); Potassium 3.5 mmol/L (3.5-5.1)
[2023-03-29] MEDS: Cetirizine 10 MG TAB PO (19:35)
--- NOTE | 2023-03-29 22:58 | NUR.NOTE ---
Nursing Note: Pt was found with breathing difficulties , lungs sounded crackle ( was heard from the doorway) and moist ,O2 sat in %75 with RA. applied nonbreather mask /16 liter oxygen. O2 sat came up to 95% after applying non breather masK , pt was at ease breathing . charge nurse was informed, VS are WNL. Provider at the bedside.
--- NOTE | 2023-03-29 23:00 | DI.RAD_ITS ---
Exam(s) XR PORTABLE CHEST AP EXAM: XR PORTABLE CHEST AP CLINICAL HISTORY: decrease in oxygen saturation. TECHNIQUE: 2D digital imaging was performed. COMPARISON: CR,XR XR PORTABLE CHEST AP from 03/28/2023 FINDINGS: Single AP portable view. Suboptimal inspiratory effort. Heart size is upper normal. The mediastinum is not widened. Increased markings noted throughout lung fuentes bilaterally which are probably exaggerated by less th an optimal inspiratory effort. No obvious pleural effusions. Increased left lower lobe retrocardiac markings are probably vascular and appear unchanged from previous. IMPRESSION: As above. Recommend nonportable PA and lateral views when clinically possible. Alternatively CT sca n. DATA REPOSITORY: RADIATION DOSE DELIVERED:
[2023-03-29] MEDS: Furosemide 40 MG/4 ML VIAL IVP (23:19)
[2023-03-29 23:26] LABS: HGB 10.1 g/dL (13.5-17.5); MCH 30.3 pg (27.0-33.0); MCHC 31.6 % (32.0-36.0); MCV 96 fL (80-95); MPV 10.2 fL (8.0-11.0); Platelet Count 240 10^3/uL (130-400); RBC 3.33 10^6/uL (4.36-5.78); RDW 13.6 % (11.8-14.1); RDW-SD 47.8 fL; WBC 10.45 10^3/uL (4.4-10.8)
[2023-03-29 23:28] LABS: BE (Venous) -4 mmol/L (-2-3); HCO3 (Venous) 23 mmol/L (23-28); pCO2 (Venous) 46 mmHg (41-51); pO2 (Venous) 140 mmHg
[2023-03-29 23:30] LABS: Lactate 0.6 mmol/L (0.6-1.4)
--- NOTE | 2023-03-29 23:30 | RT.EKG_ITS ---
APPROVED REPORT Exam: Resting ECG Reason for Exam: respiratory symptoms Patient Location: I HR:108 bpm ECG Measurements Heart Rate [address] 133 P 31 QRSd 103 QRS -34 QT 326 T 53 QTc 437 Conclusion Sinus tachycardia...rate> 99 Probable left atrial enlargement...P >50mS, <-0.10mV V1 Left axis deviation...QRS axis (-30,-90) Abnormal R-wave progression, late transition...QRS area<0 in V5/V6 Min[address] depression, lateral leads...ST <-0.04mV, I aVL V5 V6 Baseline wander in lead(s) V1,V2
[2023-03-29 23:51] LABS: NT-proBNP 1051 pg/mL (<300); Troponin I < 50 ng/L (<or=60)
[2023-03-30] VITALS (98 sets, daily range): BP systolic 105–143; BP diastolic 45–79; PULSE 92–109; RESP 8–36; TEMP 36.1–37.3; O2SAT 93–98
--- NOTE | 2023-03-30 | PGE_ITS ---
Date of Service Date of service: 03/29/23 Time of Service: 23:10 Assessment and Plan Assessment and plan (1) Pulmonary edema: Start date: 03/29/23 Status: Acute Assessment and plan: Patient has been on 200 cc an hour about her rigors and now Acute pulmonary edema is responding slowly to IV Lasix 40 mg. His blood pressure is stable and I will give another dose of 40 mg Lasix with Izquierdo catheter in place monitoring diuresis. IV fluids will be saline lock for now. Patient is off home medication which has not including diuretics. Monitor labs with IV saline lock overnight and trend CPK. He may need gentle IV fluids with ongoing IV Lasix to clear his rhabdomyolysis and avoid pulmonary edema. Echocardiogram should be obtained when available. I spent 40 minutes with the patient bedside evaluating and ordering labs, imaging and EKG as well as reviewing chest x-ray with adjustment of therapy and high risk of acute decompe nsation during this critical care time. I attended no the patient during this period and educated full attention to this high priority patient acutely decompensating. (2) Rhabdomyolysis: Status: Acute Assessment and plan: Trend labs off IV fluid resuscitation and reinitiate gentle IV fluid resuscitation with Lasix IV if needed to clear CPK. (3) Dehydration: Status: Acute Assessment and plan: Resolved with patient fluid overloaded. IV saline lock for now and adjust IV fluids with diuresis if needed for clearing rhabdomyolysis. (4) Hypokalemia: Status: Acute Assessment and plan: Monitor and replete as needed. Subjective Subjective Patient reports: shortness of breath Interval history since last seen: This is a 57-year-old gentleman with debilitated state of health including weakness with frequent falls and bruising over the left side admitted with rhabdomyolysis and aggressively treated with IV fluids who suddenly became short of breath and tachypneic decreased responsiveness. He is on multiple psychiatric meds which could be sedating but his tachypnea was sudden onset with no complaints of chest pain. He was opening his eyes to aggressive tactile stimulus and recognizing his caretakers and where he was. He denied any chest pain but was extremely tachypneic and as stated diaphoretic. Labs were ordered and chest x-ray ordered with EKG showing no acute ST-T changes other than slight depression laterally with possible strain and sinus tachycardia. He did give 40 mg of IV Lasix with some response and slight improvement of his tachypnea and clearing of his diaphoresis. Imaging suggested fluid overload and VBG revealed metabolic acidosis with normal lactate and normal WBC. Procalcitonin was pending and is unlikely patient has an acute infection. Most likely is fluid overload from his aggressive IV fluid resuscitation of his rhabdomyolysis. He voices no complaints and stated is somewhat somnolent. This may be secondary to medication but also patient does have sleep apnea and has not been on his CPAP since hospitalized. Respiratory therapy will evaluate for this. Patient IV fluids were stopped and his IV saline locked. He did have a Izquierdo catheter placed with a draining yellow clear urine. This will be for FANY's with his acute pulm edema. He is a full code. Exam Narrative Exam Narrative: General: Patient appears somnolent but arousable with aggressive tactile stimulation, at baseline he has slowed mentation and slow monotonous tone to his voice which is persisting. He does focus fairly well when awakened. HEENT: Normocephalic, eyes with pupils equal and react light symmetrically, extraocular movement-sclera anicteric. Oropharynx with moist mucosa. Neck: Supple without JVD. Back with stooped posture no CVA tenderness. Lungs: Coarse crackles over all lung fuentes with inspiration and decreased aeration at the bases. Heart: Tachycardic rate with normal rhythm. No appreciable murmur. Abdomen: Obese contour, no tympany to percussion and soft without localizing guarding. Skin: Diaphoretic when first examined but after IV Lasix and some diuresis the patient's skin is dry, pale and warm. Extremities: Nonpitting edema lower extremities as above admission without cyanosis or clubbing. Neuro: Cranial nerves II through XII grossly intact, no focal motor deficits the patient is somnolent and appears to have metabolic encephalopathy with his acute respiratory status. Psych: Flattened affect with depressed mood chronically. Abnormal thought processes the patient is somnolent. Objective Last Vital Signs Temp 36.6 C 03/29/23 23:42 Pulse 89 03/29/23 23:42 Resp 28 H 03/29/23 23:42 BP 123/83 03/29/23 23:42 Pulse Ox 96 03/29/23 23:42 Laboratory Results - last 24 hr 03/29/23 03/29/23 03/29/23 00:18 02:40 02:40 WBC 12.52 H RBC 3.26 L Hgb 9.8 L Hct 31.3 L MCV 96 H MCH 30.1 MCHC 31.3 L RDW 13.7 Plt Count 264 MPV 10.9 Immature Gran % 0.3 Neutrophils % 77.8 Lymphocytes % 14.6 Monocytes % 5.6 Eosinophils % 1.5 Basophils % 0.2 Nucleated RBC % 0.0 Absolute Neutrophils 9.74 H Absolute Lymphocytes 1.83 Absolute Monocytes 0.70 Absolute Eosinophils 0.19 Absolute Basophils 0.03 VBG pH VBG pCO2 VBG pO2 VBG HCO3 VBG Total CO2 VBG O2 Saturation VBG Base Excess VBG Lactate Sodium 138 Potassium 3.4 L Chloride 107 Carbon Dioxide 23.3 Anion Gap 7.7 BUN 34 H Creatinine 1.5 H Est GFR (CKD-EPI 2020) 53.63 Glucose 122 H Calcium 8.3 L Magnesium Total Bilirubin AST ALT Alkaline Phosphatase Creatine Kinase 1094 H Troponin I < 50 NT-Pro-B Natriuret Pep Total Protein Albumin Stl C.difficile Tox PCR 03/29/23 03/29/23 03/29/23 03:34 06:05 06:05 WBC 10.71 RBC 2.98 L Hgb 9.1 L Hct 28.6 L MCV 96 H MCH 30.5 MCHC 31.8 L RDW 13.8 Plt Count 221 MPV 10.8 Immature Gran % Neutrophils % Lymphocytes % Monocytes % Eosinophils % Basophils % Nucleated RBC % Absolute Neutrophils Absolute Lymphocytes Absolute Monocytes Absolute Eosinophils Absolute Basophils VBG pH VBG pCO2 VBG pO2 VBG HCO3 VBG Total CO2 VBG O2 Saturation VBG Base Excess VBG Lactate Sodium 142 Potassium 3.0 L Chloride 107 Carbon Dioxide 28.7 Anion Gap 6.3 BUN 31 H Creatinine 1.5 H Est GFR (CKD-EPI 2020) 53.63 Glucose 122 H Calcium 8.2 L Magnesium 1.9 Total Bilirubin 0.9 AST 57 H ALT 24 Alkaline Phosphatase 61 Creatine Kinase Troponin I NT-Pro-B Natriuret Pep Total Protein 6.1 L Albumin 2.1 L Stl C.difficile Tox PCR Negative 03/29/23 03/29/23 03/29/23 06:05 14:15 23:20 WBC RBC Hgb Hct MCV MCH MCHC RDW Plt Count MPV Immature Gran % Neutrophils % Lymphocytes % Monocytes % Eosinophils % Basophils % Nucleated RBC % Absolute Neutrophils Absolute Lymphocytes Absolute Monocytes Absolute Eosinophils Absolute Basophils VBG pH VBG pCO2 VBG pO2 VBG HCO3 VBG Total CO2 VBG O2 Saturation VBG Base Excess VBG Lactate 0.6 Sodium Potassium 3.5 Chloride Carbon Dioxide Anion Gap BUN Creatinine Est GFR (CKD-EPI 2020) Glucose Calcium Magnesium Total Bilirubin AST ALT Alkaline Phosphatase Creatine Kinase 1118 H 916 H Troponin I NT-Pro-B Natriuret Pep Total Protein Albumin Stl C.difficile Tox PCR 03/29/23 03/29/23 03/29/23 23:20 23:20 23:20 WBC 10.45 RBC 3.33 L Hgb 10.1 L Hct 32.0 L MCV 96 H MCH 30.3 MCHC 31.6 L RDW 13.6 Plt Count 240 MPV 10.2 Immature Gran % Neutrophils % Lymphocytes % Monocytes % Eosinophils % Basophils % Nucleated RBC % Absolute Neutrophils Absolute Lymphocytes Absolute Monocytes Absolute Eosinophils Absolute Basophils VBG pH 7.30 L VBG pCO2 46 VBG pO2 140 VBG HCO3 23 VBG Total CO2 Not Applicable VBG O2 Saturation VBG Base Excess -4 L VBG Lactate Sodium Potassium Chloride Carbon Dioxide Anion Gap BUN Creatinine Est GFR (CKD-EPI 2020) Glucose Calcium Magnesium Total Bilirubin AST ALT Alkaline Phosphatase Creatine Kinase Troponin I < 50 NT-Pro-B Natriuret Pep 1051 H Total Protein Albumin Stl C.difficile Tox PCR Reviewed Pertinent PMH: Yes Objective Narrative Objective Narrative: Patient has had sleep apnea which should not be treated since admitted. Time Spent with Patient Time Spent with Patient: 35-49 minutes Time was spent: preparing to see the patient(eg.review tests), obtaining and/or reviewing separately otained hiistory, ordering medications,tests, procedures, indepentently interpreting results and care coordination
--- NOTE | 2023-03-30 00:13 | DI.VRAD_ITS ---
PROCEDURE INFORMATION: Exam: XR Chest Exam date and time: 03/29/2023 11:25 PM Age: 57 years old Clinical indication: Dyspnea and other: Decrease in oxygen saturation TECHNIQUE: Imaging protocol: Radiologic exam of the chest. Views: 1 view. COMPARISON: XR PORTABLE CHEST AP 03/28/2023 11:24 PM FINDINGS: Tubes, catheters and devices: EKG monitoring leads overlie the thoracic wall. Lungs: There is incomplete lung expansion and crowding of the vascular markings. Bibasilar atelectatic changes. Pleural spaces: No pleural effusion or pneumothorax. Heart/Mediastinum: Normal in size. Diaphragm: Mild asymmetric elevation of the right hemidiaphragm. Bones/joints: No acute fracture is identified. IMPRESSION: 1. Bibasilar atelectatic changes. In the appropriate clinical setting, infection/pneumonia may present a similar picture. 2. Mild asymmetric elevation the right hemidiaphragm. Dictated and Authenticated by: Stan Melendez MD. Ordering:JERMAINE Hirsch MD
[2023-03-30 00:17] LABS: Procalcitonin 0.1 ng/mL
[2023-03-30] MEDS: Furosemide 40 MG/4 ML VIAL IVP ×3 (00:30→17:21)
[2023-03-30 02:10] LABS: BE (Venous) -1 mmol/L (-2-3); HCO3 (Venous) 25 mmol/L (23-28); O2 Sat (Venous) 73 %; TCO2 (Venous) 24 mmol/L (24-29); pCO2 (Venous) 49 mmHg (41-51); pH (Venous) 7.31 (7.31-7.41); pO2 (Venous) 38 mmHg
[2023-03-30] MEDS: Albuterol/Ipratropium 3 ML UPD VIAL UPD (02:24)
[2023-03-30] MEDS: Normal Saline 500 ML 30 ML IV (03:38)
[2023-03-30] MEDS: PIPERACILLIN/TAZO 3.375 GM in Normal Saline 50 ML IVPB (03:43)
[2023-03-30] MEDS: THIAMINE 500 MG in Normal Saline 100 ML 200 MG IVPB ×3 (04:15→19:00)
[2023-03-30] MEDS: VANCOMYCIN 2,000 MG in Normal Saline 500 ML 250 MG IVPB (05:31)
[2023-03-30] MEDS: Heparin 5,000 UNITS/ML VIAL 5000 UNITS SC ×3 (05:32→21:20)
[2023-03-30 07:31] LABS: Absolute Basophil Count 0.04 10^3/uL (0.0-0.2); Absolute Lymphocyte Count 0.91 10^3/uL (1.2-3.4); Basophils % 0.3; Eosinophils % 0.7; HCT 31.4 % (40.0-50.0); HGB 9.9 g/dL (13.5-17.5); Immature Grans % 0.7; Lymphocytes % 6.3; MCH 30.3 pg (27.0-33.0); MCHC 31.5 % (32.0-36.0); MCV 96 fL (80-95); MPV 11.1 fL (8.0-11.0); Monocytes % 3.7; Neutrophils % 88.3; Platelet Count 261 10^3/uL (130-400); RBC 3.27 10^6/uL (4.36-5.78); RDW 13.6 % (11.8-14.1); RDW-SD 48.3 fL; WBC 14.48 10^3/uL (4.4-10.8)
[2023-03-30 07:43] LABS: Absolute Monocyte Count 0.54 10^3/uL (0.1-0.8); Absolute Neutrophil Count 12.79 10^3/uL (1.2-6.7)
[2023-03-30 07:59] LABS: Anion Gap 7.4 mmol/L (3-11); BUN 24 mg/dL (7-18); CO2 25.6 mmol/L (21.0-32.0); CREATININE 1.5 mg/dL (0.70-1.30); Calcium 8.5 mg/dL (8.5-10.1); Chloride 106 mmol/L (98-107); Creatine Kinase 453 U/L (39-308); Estimated GFR 53.63 (mL/min/1.73m2); Glucose 122 mg/dL (74-106); Potassium 3.2 mmol/L (3.5-5.1); Sodium 139 mmol/L (136-145)
[2023-03-30] MEDS: Normal Saline Flush 10 ML SYR IVP ×2 (08:06→10:40)
--- NOTE | 2023-03-30 08:13 | NUR.NOTE ---
Physical therapy performs range of motion in bed.Nursing Note:
--- NOTE | 2023-03-30 08:23 | PT.INTREAT ---
PT Notes Visit Reasons: Rhabdomyolysis 03/30/23 Precautions: fall Subjective; Pt in ICU, sleeping not able to arouse pt, pt on CPAP machine. Therapeutic Procedure [id number] 15mins: Bed level PROM for bilateral shoulder, elbow, wrist, hips, knees and ankles to maintain flexibility and and help with circulation and swelling. Time: 8:05-8:20am
--- NOTE | 2023-03-30 08:31 | PGE_ITS ---
Date of Service Date of service: 03/30/23 Time of Service: 08:31 Assessment and Plan Assessment and plan (1) Pulmonary edema: Start date: 03/29/23 Status: Acute Assessment and plan: likely fluid overload from resuscitation from rhabdomyolysis. EKG and troponin I not consistent w/ acute ACS; patient was given total of 80 mg lasix w/ good response but he still clinically and by US is in fluid overload. He also probably had an aspiration event as evidenced by RLL infiltrate. Patient will be started on Unasyn and further diuretics will be given. I will get formal echocardiogram on Saturday, will attempt bedside POCUS echo later today if time will allow. Critical care time spent interviewing and examining the patient, reviewing eric dies, discussing case with patient's nurse and consulting physicians was 60 minutes (2) Rhabdomyolysis: Status: Acute Assessment and plan: resolving. no further need for iv fluids given his hypervolemic state (3) Hypokalemia: Status: Acute Assessment and plan: Monitor and replete as needed. giving iv potassium w/ repeat levels later today (4) Hypothyroidism (acquired): Status: Chronic Assessment and plan: continue oral replacement as soon as he can safely swallow (5) Decubitus ulcer of sacral area: Status: Acute Assessment and plan: nursing to address skin wounds w/ local care/ off loading of pressure points (6) Falls frequently: Status: Chronic Assessment and plan: will need P.T. evaluation when he is more alert and able to participate (7) Chronic mental illness: Status: Acute Assessment and plan: We need more information from his providers at [facility]. Patient is on multiple meds including some antipsychotics (olanzapine and abilify) but also on antidepressant Duloxetine. I am holding his amitriptyline and gabapentin as he is too lethargic for this and his other oral medications are on hold until he is able to safely swallow. Subjective Subjective Interval history since last seen: Patient had acute respiratory event overnight in which patient developed acute hypoxemia necessitating application of BIPAP and transfer to ICU. See Dr. Leach note. Patient had been [facility] and found to have rhabdomyolysis w/ CK of 1200 and was given aggressive iv fluids and now his CK is down to 453, however, last night he became acutely dyspneic, tachycardic and hypoxemic. His EKG did not show acute ischemia and his troponin I was normal last night. His CXR was consistent w/ volume overnload, BNP was elevated at 1050. He was given lasix 40 mg IVP x 2 doses, however he also was found to have elevated WBC 14,[address] Leach was concerned for aspiration event. Patient has psychiatric history and has been long standing neuroleptic medications that can cause Parkinsonism and apparently he has been rather stiff, having difficulty ambulating. He very well may have some dysphagia issues. Exam Narrative Exam Narrative: Middle age white male who is lying in upright position in bed w/ his eyes closed, however he does open his eyes to his name and he follows simple commands. When asked if he is short of breath or has any pain he nods no. Neck: no overt JVD, he is using his accessory respiratory muscles and remains tachypneic Lungs: clear in anterior upper fuentes but has basilar rales and diminished breath sounds at the bases [place]: soft, nontender, normal bowel sounds Extremities: marked bruising of left thigh, suprapubic, no pedal or pretibial edema Normal pulses Skin: multiple skin tears (right lateral chest wall, bruises all along left thigh and lower leg, left buttock and above symphysis pubis) Izquierdo draining clear yellow urine Neuro: moves all 4's, he is lethargic but will open eyes to his name, follows simple commands such as squeezing my hand Objective Last Vital Signs Temp 36.5 C 03/30/23 08:09 Pulse 103 H 03/30/23 08:23 Resp 35 H 03/30/23 08:23 BP 130/69 03/30/23 08:09 Pulse Ox 95 03/30/23 08:23 Laboratory Results - last 24 hr 03/29/23 03/29/23 03/29/23 14:15 23:20 23:20 WBC RBC Hgb Hct MCV MCH MCHC RDW Plt Count MPV Immature Gran % Neutrophils % Lymphocytes % Monocytes % Eosinophils % Basophils % Nucleated RBC % Absolute Neutrophils Absolute Lymphocytes Absolute Monocytes Absolute Eosinophils Absolute Basophils VBG pH VBG pCO2 VBG pO2 VBG HCO3 VBG Total CO2 VBG O2 Saturation VBG Base Excess VBG Lactate 0.6 Sodium Potassium 3.5 Chloride Carbon Dioxide Anion Gap BUN Creatinine Est GFR (CKD-EPI 2020) Glucose Calcium Creatine Kinase 916 H Troponin I < 50 NT-Pro-B Natriuret Pep 1051 H Procalcitonin 03/29/23 03/29/23 03/29/23 23:20 23:20 23:20 WBC 10.45 RBC 3.33 L Hgb 10.1 L Hct 32.0 L MCV 96 H MCH 30.3 MCHC 31.6 L RDW 13.6 Plt Count 240 MPV 10.2 Immature Gran % Neutrophils % Lymphocytes % Monocytes % Eosinophils % Basophils % Nucleated RBC % Absolute Neutrophils Absolute Lymphocytes Absolute Monocytes Absolute Eosinophils Absolute Basophils VBG pH 7.30 L VBG pCO2 46 VBG pO2 140 VBG HCO3 23 VBG Total CO2 Not Applicable VBG O2 Saturation VBG Base Excess -4 L VBG Lactate Sodium Potassium Chloride Carbon Dioxide Anion Gap BUN Creatinine Est GFR (CKD-EPI 2020) Glucose Calcium Creatine Kinase Troponin I NT-Pro-B Natriuret Pep Procalcitonin 0.1 03/30/23 03/30/23 03/30/23 02:02 06:45 06:45 WBC 14.48 H RBC 3.27 L Hgb 9.9 L Hct 31.4 L MCV 96 H MCH 30.3 MCHC 31.5 L RDW 13.6 Plt Count 261 MPV 11.1 H Immature Gran % 0.7 Neutrophils % 88.3 Lymphocytes % 6.3 Monocytes % 3.7 Eosinophils % 0.7 Basophils % 0.3 Nucleated RBC % 0.0 Absolute Neutrophils 12.79 H Absolute Lymphocytes 0.91 L Absolute Monocytes 0.54 Absolute Eosinophils 0.10 Absolute Basophils 0.04 VBG pH 7.31 VBG pCO2 49 VBG pO2 38 VBG HCO3 25 VBG Total CO2 24 VBG O2 Saturation 73 VBG Base Excess -1 VBG Lactate Sodium 139 Potassium 3.2 L Chloride 106 Carbon Dioxide 25.6 Anion Gap 7.4 BUN 24 H Creatinine 1.5 H Est GFR (CKD-EPI 2020) 53.63 Glucose 122 H Calcium 8.5 Creatine Kinase 453 H Troponin I NT-Pro-B Natriuret Pep Procalcitonin Time Spent with Patient Time Spent with Patient: >50 minutes Time was spent: preparing to see the patient(eg.review tests), obtaining and/or reviewing separately otained hiistory, ordering medications,tests, procedures, referring, communicating with other health home care manager, indepentently interpreting results and care coordination
[2023-03-30] MEDS: POTASSIUM CHLORIDE 10 MEQ/100 ML BAG 100 MEQ IVPB ×8 (09:16→23:16)
--- NOTE | 2023-03-30 09:36 | W.POCUS ---
Pocus Exam Limited Thoracic Lung Exam DATE OF EXAM: 03/30/23 TIME OF EXAM: 09:12 PROVIDER THAT PERFORMED THE STUDY: Joel [place] IS THIS A REPEAT EXAM DURING THIS ENCOUNTER: No REASON FOR EXAM: Hypoxia VISUALIZED STRUCTURES: right anterior, left anterior, right lateral, left lateral, right subcostal and left subcostal PERTINENT FINDINGS/IMPRESSION: B-lines/left side thoracis location: anterior and lateral, B-lines/right side thoracis location: anterior and lateral and Pneumonia (RLL consolidation, air bronchogram); no pleural effusion on the left and no pleural effusion on the right INCIDENTAL FINDINGS: Patient w/ bilateral diffuse B lines in all lung fuentes along w/ consolidation w/ air bronchograms in right lower lung zone; findings are consistent w/ pneumonia w/ superimposed pulmonary edema Exam complete
[2023-03-30] MEDS: AMPICILLIN/SULBACTAM 3 GM in Normal Saline 100 ML IVPB ×3 (10:40→21:22)
[2023-03-30] MEDS: Pantoprazole 40 MG VIAL IVP (10:40)
[2023-03-30 10:54] LABS: BE (Venous) 1 mmol/L (-2-3); HCO3 (Venous) 25 mmol/L (23-28); pCO2 (Venous) 38 mmHg (41-51); pH (Venous) 7.42 (7.31-7.41); pO2 (Venous) 118 mmHg
[2023-03-30 10:57] LABS: Lactate 0.8 mmol/L (0.6-1.4); O2 Sat (Venous) > 99 %
[2023-03-30 11:06] LABS: Ammonia 38 umol/L (11-32)
--- NOTE | 2023-03-30 12:59 | RESPIRATORY ---
RT spoke with patient's sister, Suad Brown, concerning bring his home PAP device down from [place] home. The sister plans to drop it off later on this afternoon, possibly after 3pm. RT instructed the sister to either drop the device off at the ER or Main Entrance along with have them page RT to picker tender. RT will set device up and change Bipap/Cpap order according to settings once device is present.
[2023-03-30 16:50] LABS: Potassium 3.1 mmol/L (3.5-5.1)
[2023-03-30] MEDS: Potassium Chloride 10 MEQ CAPCR 40 MEQ PO (17:20)
[2023-03-30] MEDS: Tamsulosin 0.4 MG CAPCR PO (21:21)
[2023-03-30] MEDS: ARIPiprazole 5 MG TAB 20 MG PO (21:21)
[2023-03-30] MEDS: Pramipexole 0.5 MG TAB 1 MG PO (21:21)
[2023-03-30] MEDS: OLANZapine 5 MG TAB PO (21:35)
[2023-03-30] MEDS: Amitriptyline 10 MG TAB PO (21:35)
[2023-03-30 22:25] LABS: Source Nasal/Nares
[2023-03-30 22:58] LABS: COVID-19 PCR Negative (Negative)
[2023-03-30 23:15] LABS: Potassium 3.1 mmol/L (3.5-5.1)
[2023-03-31] VITALS (47 sets, daily range): BP systolic 111–131; BP diastolic 55–78; PULSE 81–103; RESP 0–36; TEMP 36.2–37.5; O2SAT 92–98
[2023-03-31] MEDS: THIAMINE 500 MG in Normal Saline 100 ML 200 MG IVPB ×3 (01:35→17:59)
[2023-03-31] MEDS: Furosemide 40 MG/4 ML VIAL IVP (01:36)
[2023-03-31] MEDS: Loperamide 2 MG CAP 4 MG PO (02:10)
[2023-03-31] MEDS: AMPICILLIN/SULBACTAM 3 GM in Normal Saline 100 ML IVPB ×4 (03:02→21:11)
[2023-03-31] MEDS: Loperamide 2 MG CAP PO ×2 (03:03→08:38)
[2023-03-31 06:28] LABS: Abs Immature Grans 0.04 10^3/uL (0.0-0.06); Absolute Basophil Count 0.02 10^3/uL (0.0-0.2); Absolute Eosinophil Count 0.33 10^3/uL (0.0-0.7); Absolute Lymphocyte Count 1.24 10^3/uL (1.2-3.4); Absolute Monocyte Count 0.57 10^3/uL (0.1-0.8); Absolute Neutrophil Count 9.96 10^3/uL (1.2-6.7); Basophils % 0.2; Eosinophils % 2.7; HCT 29.8 % (40.0-50.0); HGB 9.6 g/dL (13.5-17.5); Immature Grans % 0.3; Lymphocytes % 10.2; MCH 30.3 pg (27.0-33.0); MCHC 32.2 % (32.0-36.0); MCV 94 fL (80-95); MPV 11.8 fL (8.0-11.0); Monocytes % 4.7; Neutrophils % 81.9; Platelet Count 269 10^3/uL (130-400); RBC 3.17 10^6/uL (4.36-5.78); RDW 13.8 % (11.8-14.1); RDW-SD 47.7 fL; WBC 12.16 10^3/uL (4.4-10.8)
[2023-03-31] MEDS: Levothyroxine 75 MCG TAB PO (06:38)
[2023-03-31] MEDS: Heparin 5,000 UNITS/ML VIAL 5000 UNITS SC ×3 (06:38→21:17)
[2023-03-31 06:49] LABS: Anion Gap 8.9 mmol/L (3-11); BUN 20 mg/dL (7-18); CO2 28.1 mmol/L (21.0-32.0); CREATININE 1.6 mg/dL (0.70-1.30); Calcium 8.7 mg/dL (8.5-10.1); Chloride 107 mmol/L (98-107); Estimated GFR 49.63 (mL/min/1.73m2); Glucose 127 mg/dL (74-106); Sodium 144 mmol/L (136-145)
[2023-03-31 06:51] LABS: Potassium 2.9 mmol/L (3.5-5.1)
[2023-03-31 06:57] LABS: Creatine Kinase 165 U/L (39-308)
[2023-03-31 07:29] LABS: Magnesium 1.5 mg/dL (1.8-2.4)
[2023-03-31] MEDS: MAGNESIUM SULFATE 2 GM/50 ML BAG IVPB (08:17)
[2023-03-31] MEDS: POTASSIUM CHLORIDE 20 MEQ/100 ML BAG 50 MEQ IVPB ×2 (08:19→12:38)
[2023-03-31] MEDS: DULoxetine 30 MG CAP 60 MG PO (08:20)
[2023-03-31] MEDS: Pantoprazole 40 MG VIAL IVP (08:20)
[2023-03-31] MEDS: Metoprolol CR 25 MG TABCR PO (08:21)
[2023-03-31] MEDS: Cyanocobalamin 500 MCG TAB PO (08:21)
[2023-03-31] MEDS: Finasteride 5 MG TAB PO (08:21)
[2023-03-31] MEDS: buPROPion-XL 150 MG TABCR 450 MG PO (08:21)
--- NOTE | 2023-03-31 09:21 | W.PM.PROGNOT ---
Date of Service Date of service: 03/31/23 Time of Service: 09:21 Assessment and Plan Assessment and plan (1) Acute respiratory failure with hypoxia: Status: Acute Assessment and plan: patient had been transferred to ICU two nights ago d/t acute hypoxic respiratory failure believed to be d/t pulmonary edema from volume overload given in response to his rhabdomyolysis however, he also apparently had an aspiration event associated w/ his decreased mental status. The pulmonary edema appears to have resolved, he still has evidence of pneumonia both on clinical exam and POCUS but his WBC are declining and his oxygen needs have improved. He is stable from respiratory and hemodynamic standpoint and can transfer to med/surg. I will continue telemetry d/t his electrolyte problems i.e. low K and Mg and need for frequent parenteral supplementation. I have requested RT to perform chest physiotherapy and encourage patient to cough and deep breathing, use of IS and acapella. Continue Unasyn for pneumonia Professional time spent interviewing and examining patient, discussion of goals of care with hospital team (care management, nursing and consulting professionals) was 45 minutes. (2) Aspiration pneumonia: Status: Acute Assessment and plan: as above. No noticeable problems w/ swallowing noted since his mental alertness has improved. Qualifiers: Aspiration pneumonia type: unspecified Laterality: right Lung location: lower lobe of lung Qualified Code(s): J69.0 - Pneumonitis due to inhalation of food and vomit (3) Pulmonary edema: Status: Resolved Qualifiers: Chronicity: acute Qualified Code(s): J81.0 - Acute pulmonary edema (4) Hypokalemia: Status: Acute Assessment and plan: ongoing problem d/t his diarrhea; continues to need both oral and parenteral replacement (5) Diarrhea: Status: Acute Assessment and plan: stool negative for C. diff. will check stool bacterial antigens, give patient imodium and metamucil Qualifiers: Diarrhea type: unspecified type Qualified Code(s): R19.7 - Diarrhea, unspecified (6) Factor V Leiden mutation: Status: Chronic Assessment and plan: I will resume his warfarin w/ monitoring given his prior hx of DVT and having Leiden factor V mutation. (7) Falls frequently: Status: Chronic Assessment and plan: now that his mental status has improved, he should have P.T. evaluation (8) Chronic mental illness: Status: Acute Assessment and plan: We need more information from his providers at [facility]. Patient is on multiple meds including some antipsychotics (olanzapine and abilify) but also on antidepressant Duloxetine. I am holding his amitriptyline and gabapentin as he is too lethargic for this and his other oral medications are on hold until he is able to safely swallow. (9) Rhabdomyolysis: Status: Resolved Assessment and plan: CK down to 165. (10) Hypothyroidism (acquired): Status: Chronic Assessment and plan: continue oral replacement as soon as he can safely swallow (11) Decubitus ulcer of sacral area: Status: Acute Assessment and plan: nursing to address skin wounds w/ local care/ off loading of pressure points Subjective Subjective Interval history since last seen: Patient's mental status improved throughout the day yesterday. This morning he is alert and oriented. His main complaint is that of diarrhea. Stool was checked for C difficile which was negative. He has some abdominal cramping but no pain per se. He is not dyspneic at rest and he has been weaned off oxygen to room air. His cough has been nonproductive. Nasal PCR for SARS-COV2 was negative. Although his chest xray reading did not indicate pneumonia, his clinical presentation to the ICU and his POCUS exam demonstrated RLL consolidation as well as pulmonary edema. He has been adequately diuresed. Repeat exam did not show B line pattern in the upper fuentes nor on the left side. He has consolidation and air bronchograms in the RLL. He is currently on Unasyn. His medications on admission were not reconciled but since then have been reconciled. He has been on warfarin chronically for Leiden Factor V mutation and a hx of DVT's (none recently). warfarin is managed by his PCP, Dr. Baron Barbour. Exam Narrative Exam Narrative: Jarad is alert, oriented to person, place, time, circumstances He says that he has no appetite and ate hardly any of his breakfast Lungs: marked decrease aeration to RLL, clear anteriorly and on left posterior Abdomen: nondistended, soft, no guarding or rebound tenderness, normal bowel sounds Neuro: normal speech, normal cognition, no focal motor deficits Skin: bruising along left hip, left leg, symphysis pubis, some skin tear along right lateral chest wall, redness over sacrum but no open sores (I did not look at his sacrum on today's exam but did so yesterday w/ his nurse, Joel) Objective Last Vital Signs Temp 37.3 C 03/31/23 04:00 Pulse 97 H 03/31/23 08:01 Resp 17 03/31/23 08:01 BP 116/68 03/31/23 08:01 Pulse Ox 94 03/31/23 08:01 Laboratory Results - last 24 hr 03/30/23 03/30/23 03/30/23 10:40 10:40 10:40 WBC RBC Hgb Hct MCV MCH MCHC RDW Plt Count MPV Immature Gran % Neutrophils % Lymphocytes % Monocytes % Eosinophils % Basophils % Nucleated RBC % Absolute Neutrophils Absolute Lymphocytes Absolute Monocytes Absolute Eosinophils Absolute Basophils VBG pH 7.42 H VBG pCO2 38 L VBG pO2 118 VBG HCO3 25 VBG Total CO2 VBG O2 Saturation > 99 VBG Base Excess 1 VBG Lactate 0.8 Sodium Potassium Chloride Carbon Dioxide Anion Gap BUN Creatinine Est GFR (CKD-EPI 2020) Glucose Calcium Magnesium Ammonia 38 H Creatine Kinase COVID-19 Source SARS-CoV-2 (PCR) 03/30/23 03/30/23 03/30/23 16:25 18:38 22:10 WBC RBC Hgb Hct MCV MCH MCHC RDW Plt Count MPV Immature Gran % Neutrophils % Lymphocytes % Monocytes % Eosinophils % Basophils % Nucleated RBC % Absolute Neutrophils Absolute Lymphocytes Absolute Monocytes Absolute Eosinophils Absolute Basophils VBG pH VBG pCO2 VBG pO2 VBG HCO3 VBG Total CO2 VBG O2 Saturation VBG Base Excess VBG Lactate Sodium Potassium 3.1 L Chloride Carbon Dioxide Anion Gap BUN Creatinine Est GFR (CKD-EPI 2020) Glucose Calcium Magnesium Ammonia Creatine Kinase COVID-19 Source Cancelled Nasal/Nares SARS-CoV-2 (PCR) Cancelled Negative 03/30/23 03/31/23 03/31/23 22:55 05:36 05:36 WBC RBC Hgb Hct MCV MCH MCHC RDW Plt Count MPV Immature Gran % Neutrophils % Lymphocytes % Monocytes % Eosinophils % Basophils % Nucleated RBC % Absolute Neutrophils Absolute Lymphocytes Absolute Monocytes Absolute Eosinophils Absolute Basophils VBG pH VBG pCO2 VBG pO2 VBG HCO3 VBG Total CO2 VBG O2 Saturation VBG Base Excess VBG Lactate Sodium 144 Potassium 3.1 L 2.9 L Chloride 107 Carbon Dioxide 28.1 Anion Gap 8.9 BUN 20 H Creatinine 1.6 H Est GFR (CKD-EPI 2020) 49.63 Glucose 127 H Calcium 8.7 Magnesium Ammonia Creatine Kinase 165 COVID-19 Source SARS-CoV-2 (PCR) 03/31/23 03/31/23 05:36 05:36 WBC 12.16 H RBC 3.17 L Hgb 9.6 L Hct 29.8 L MCV 94 MCH 30.3 MCHC 32.2 RDW 13.8 Plt Count 269 MPV 11.8 H Immature Gran % 0.3 Neutrophils % 81.9 Lymphocytes % 10.2 Monocytes % 4.7 Eosinophils % 2.7 Basophils % 0.2 Nucleated RBC % 0.0 Absolute Neutrophils 9.96 H Absolute Lymphocytes 1.24 Absolute Monocytes 0.57 Absolute Eosinophils 0.33 Absolute Basophils 0.02 VBG pH VBG pCO2 VBG pO2 VBG HCO3 VBG Total CO2 VBG O2 Saturation VBG Base Excess VBG Lactate Sodium Potassium Chloride Carbon Dioxide Anion Gap BUN Creatinine Est GFR (CKD-EPI 2020) Glucose Calcium Magnesium 1.5 L Ammonia Creatine Kinase COVID-19 Source SARS-CoV-2 (PCR) Time Spent with Patient Time Spent with Patient: 35-49 minutes Time was spent: preparing to see the patient(eg.review tests), ordering medications,tests, procedures, referring, communicating with other health date night caregiver, indepentently interpreting results, counseling the patient and care coordination
[2023-03-31] MEDS: Cholecalciferol (Vitamin D3) 1,000 UNIT TAB 2000 UNITS PO (10:39)
[2023-03-31] MEDS: Magnesium Oxide 400 MG TAB 800 MG PO ×2 (10:39→20:27)
[2023-03-31] MEDS: Potassium Chloride 10 MEQ CAPCR 20 MEQ PO ×3 (10:39→20:26)
[2023-03-31] MEDS: Famotidine 20 MG TAB PO (10:45)
[2023-03-31] MEDS: Psyllium PKT 1 EACH PO ×2 (10:52→20:28)
[2023-03-31] MEDS: Gabapentin 600 MG TAB PO ×2 (13:40→20:32)
[2023-03-31 15:05] LABS: Potassium 3.5 mmol/L (3.5-5.1)
--- NOTE | 2023-03-31 18:32 | NUR.NOTE ---
pt transferred from ICU to room 226. Pt is a&ox3, VSS. oriented pt to room and call light. Nursing Note:
[2023-03-31] MEDS: Amitriptyline 10 MG TAB PO (21:16)
[2023-03-31] MEDS: ARIPiprazole 5 MG TAB 20 MG PO (21:16)
[2023-03-31] MEDS: Tamsulosin 0.4 MG CAPCR PO (21:16)
[2023-03-31] MEDS: Pramipexole 0.5 MG TAB 1 MG PO (21:16)
[2023-03-31] MEDS: OLANZapine 5 MG TAB PO (21:17)
[2023-04-01] VITALS (11 sets, daily range): BP systolic 110–129; BP diastolic 71–76; PULSE 77–92; RESP 1–20; TEMP 35.7–36.8; O2SAT 94–98
[2023-04-01] MEDS: AMPICILLIN/SULBACTAM 3 GM in Normal Saline 100 ML IVPB (04:34)
[2023-04-01] MEDS: Heparin 5,000 UNITS/ML VIAL 5000 UNITS SC ×3 (05:04→21:50)
[2023-04-01] MEDS: Levothyroxine 75 MCG TAB PO (05:04)
[2023-04-01 06:37] LABS: Prothrombin Time 10.3 sec (9.3-11.0)
[2023-04-01 06:45] LABS: Anion Gap 7.3 mmol/L (3-11); BUN 17 mg/dL (7-18); CO2 27.7 mmol/L (21.0-32.0); CREATININE 1.5 mg/dL (0.70-1.30); Calcium 8.7 mg/dL (8.5-10.1); Chloride 106 mmol/L (98-107); Estimated GFR 53.63 (mL/min/1.73m2); Glucose 134 mg/dL (74-106); Potassium 3.3 mmol/L (3.5-5.1); Sodium 141 mmol/L (136-145)
[2023-04-01 06:46] LABS: Magnesium 1.9 mg/dL (1.8-2.4)
[2023-04-01] MEDS: buPROPion-XL 150 MG TABCR 450 MG PO (09:29)
[2023-04-01] MEDS: DULoxetine 30 MG CAP 60 MG PO (09:29)
[2023-04-01] MEDS: Cholecalciferol (Vitamin D3) 1,000 UNIT TAB 2000 UNITS PO (09:30)
[2023-04-01] MEDS: Cyanocobalamin 500 MCG TAB PO (09:31)
[2023-04-01] MEDS: Gabapentin 600 MG TAB PO ×3 (09:31→20:24)
[2023-04-01] MEDS: Famotidine 20 MG TAB PO (09:31)
[2023-04-01] MEDS: Finasteride 5 MG TAB PO (09:31)
[2023-04-01] MEDS: Metoprolol CR 25 MG TABCR PO (09:31)
[2023-04-01] MEDS: Psyllium PKT 1 EACH PO ×3 (09:32→20:24)
[2023-04-01] MEDS: Potassium Chloride 10 MEQ CAPCR 20 MEQ PO ×3 (09:32→20:23)
--- NOTE | 2023-04-01 11:04 | PGE_ITS ---
Date of Service Date of service: 04/01/23 Time of Service: 11:04 Assessment and Plan Assessment and plan (1) Aspiration pneumonia: Status: Acute Assessment and plan: Patient is improving not requring supplemental oxygen and remained afebrile. IV became infiltrated this morning and have switched him from Unasyn to Augmentin. Continue pulmonary toiletry and scheduled nebulizer treatments. Patient's had no visible difficulty with swallowing. Qualifiers: Aspiration pneumonia type: unspecified Laterality: right Lung location: lower lobe of lung Qualified Code(s): J69.0 - Pneumonitis due to inha lation of food and vomit (2) Pulmonary edema: Status: Resolved Assessment and plan: Patient's been adequately diuresed and is now on pulmonary edema. Etiology was likely secondary to aggressive IV fluid hydration for his rhabdomyolysis. Qualifiers: Chronicity: acute Qualified Code(s): J81.0 - Acute pulmonary edema (3) Hypokalemia: Status: Acute Assessment and plan: ongoing problem d/t his diarrhea; continues to require supplementation and monitoring. (4) Diarrhea: Status: Acute Assessment and plan: stool negative for C. diff. will check stool bacterial antigens, give patient imodium and metamucil Qualifiers: Diarrhea type: unspecified type Qualified Code(s): R19.7 - Diarrhea, unspecified (5) Factor V Leiden mutation: Status: Chronic Assessment and plan: I will resume his warfarin w/ monitoring given his prior hx of DVT and having Leiden factor V mutation. INR subtherapeutic at 1.0 (6) Falls frequently: Status: Chronic Assessment and plan: now that his mental status has improved, he should have P.T. evaluation (7) Chronic mental illness: Status: Acute Assessment and plan: We need more information from his providers at [facility]. Patient is on multiple meds including some antipsychotics (olanzapine and abilify) but also on antidepressant Duloxetine. I am holding his amitriptyline and gabapentin as he i s too lethargic for this and his other oral medications are on hold until he is able to safely swallow. (8) Rhabdomyolysis: Status: Resolved Assessment and plan: CK down to 165. (9) Hypothyroidism (acquired): Status: Chronic Assessment and plan: continue oral replacement as soon as he can safely swallow (10) Decubitus ulcer of sacral area: Status: Acute Assessment and plan: nursing to address skin wounds w/ local care/ off loading of pressure points (11) Parkinsonism: Status: Acute Assessment and plan: patient to start trial of Sinemet. Case discussed w/ Dr. Pitt Subjective Subjective Interval history since last seen: Patient still complains of diarrhea. He has no abdominal pain nausea or vomiting. No dyspnea. He is off oxygen now with oxygen saturations of 95 to 97%. Exam Narrative Exam Narrative: Jarad sitting up in chair he is alert and oriented watching TV no acute distress not using accessory respiratory muscles. Lungs with diminished breath sounds over the right lung base. Heart is regular rate and rhythm without murmur rub or gallop Abdomen soft nondistended nontender normal bowel sounds Extremities without peripheral cyanosis or edema. He has bruising over his left thigh and also over the symphysis pubis. Objective Last Vital Signs Temp 36.8 C 04/01/23 10:49 Pulse 81 04/01/23 10:49 Resp 17 04/01/23 10:49 BP 115/74 04/01/23 10:49 Pulse Ox 94 04/01/23 10:49 Laboratory Results - last 24 hr 03/31/23 04/01/23 04/01/23 14:30 05:48 05:48 PT INR Sodium 141 Potassium 3.5 3.3 L Chloride 106 Carbon Dioxide 27.7 Anion Gap 7.3 BUN 17 Creatinine 1.5 H Est GFR (CKD-EPI 2020) 53.63 Glucose 134 H Calcium 8.7 Magnesium 1.9 04/01/23 05:48 PT 10.3 INR 1.0 Sodium Potassium Chloride Carbon Dioxide Anion Gap BUN Creatinine Est GFR (CKD-EPI 2020) Glucose Calcium Magnesium Reviewed Pertinent PMH: Yes Time Spent with Patient Time Spent with Patient: 25-34 minutes Time was spent: preparing to see the patient(eg.review tests), ordering medications,tests, procedures, referring, communicating with other health hearing healthcare practitioner (discussed w/ Dr. Pitt), indepentently interpreting results, counseling the patient and care coordination
[2023-04-01] MEDS: Magnesium Oxide 400 MG TAB 800 MG PO ×2 (11:16→20:24)
[2023-04-01] MEDS: Albuterol/Ipratropium 3 ML UPD VIAL UPD ×2 (11:42→20:22)
--- NOTE | 2023-04-01 12:56 | W.NEUROCONSU ---
Date of service: 04/01/23 Time of Service: 12:57 Assessment and Plan Assessment and plan (1) Falls frequently: Status: Chronic (2) Generalized weakness: Status: Acute (3) Rhabdomyolysis: Status: Resolved (4) Parkinsonism: Status: Acute Assessment and plan: Mr. Brown presents with frequent falls and generalized weakness with recent rhabdomyolysis. He has mild Parkisonian features on exam, likely due to his long-term use of neuroleptic medications. His weakness and falls are likely multifactorial from the previously described conditions and likely deconditioning. I don't see any si/sx of myelopathy at this time. Discussed trial of Sinemet 25/100mg TID at 7am, noon, and 5pm. He is agreeable. ADRs discussed. I am not optimistic this will make much of a difference given very mild symptoms/findings on exam. He should continue PT. Agree with likely SNF placement. Will continue to follow along. History of Present Illness History of Present Illness Chief Complaint: falls Narrative: Handedness: right. Mr. Brown is a 57 year-old with a long history of mood disorder (he reports remote dx of Bipolar and recent dx of schizoaffective d/o; though there are also notes indicating schizophrenia instead) for which he has been on long-term neuropletics and benzodiazepines, chronic kidney disease, Factor V Leiden dec/prior DVT on warfarin, HTN, HLD, BRIGETTE, BPH, GERD, hypothyroidism, and insomnia. I was able to review his prior [facility] and [facility] records. Mr. Brown has been living independently and driving, stable for the past 10 years until December 2022 since which he has psychiatrically decompensated, which has been attributed to the long-term of his long time psychiatrist (Dr. Polk) and then R TKA on 12/25/22 at [facility]. He was admitted back to [facility] after TKA 01/04/23-01/07/23 for AMS found to be septic from pneumonia, complicated by rhabdomyolisis and FARRUKH. It then appears the was in/out of the [facility] ER vs placed in ER hold until 01/16/23 at which time he was admitted to [facility] where he stayed through 02/25/23 for catatonic-like state and increased religiosity from baseline secondary to stopping his medications (heard the voice of God which told him to stop his meds...). Unclear how he was doing from 02/25/23 until 03/27/23 (seen by wound care on 03/21/23, but no showed on 03/26/23; seen by PCP on 03/14/23 with normal mini-cog test) at which time he was admitted to [facility] after a friend found him down at home, covered in bruises of unclear duration (last known normal on 03/23/23). He admitted that he had stopped his home medications again, though, for unclear duration. CK 2511 - > 1561 -> 1520. Cr 1.36 -> 1.68. [facility] and with a reported increase in his home lorazepam with reported improvement in mental status. He was discharged from [facility] on 03/28/23 to [facility] for ongoing psychiatric care. However, upon arrival he was unable to ambulate with altered mental status/confusion and thus not appropriate for care there. He was brought to the [facility] ER and admitted here for work-up and placement. On 03/29/23, he has an acute respiratory event with aspiration in the setting of somnolence (home amitripytline and gabapentin stopped) and volume overload (given for ongoing rhabdo). He was transferred to ICU and was requiring O2. He was started on abx for aspiration PNA. He has since improved cognitively and physically and has moved back to floor bed. He still notes difficulty ambulating. Feels weak and shakey. He doesn't know long this has been happening. He cannot tell me about being home in late February/early March and what his strength and balance was at that time. He reports numbness in his feet of long duration but says is had not changed. He reports not knowing why he has it. He denies neck or low back pain. Work-up: -CTH (03/28/23): No acute findings. I reviewed these images personally and this is my personal interpretation. -Labs (03/28/23): W ~12 and steady, Cr 1.8 - > 1.5/1.6, CK 1204 -> 165, TSH 5.94, FT4 1.35 Review of Systems All systems reviewed & are unremarkable except as noted in HPI and below PFSH All Active Problems (Updated 04/01/23 @ 16:41 by Justyna Pitt MD) Parkinsonism (Acute) Generalized weakness (Acute) Factor V Leiden mutation (Chronic) Diarrhea (Acute) Acute respiratory failure with hypoxia (Acute) Aspiration pneumonia (Acute) Chronic mental illness (Acute) Decubitus ulcer of sacral area (Acute) Right foot ulcer (Acute) Hypokalemia (Acute) Dehydration (Acute) Hypothyroidism (acquired) (Chronic) Mood disorder (Chronic) History of arthroplasty (Acute) Right knee Tremor due to disorder of central nervous system (Acute) Falls frequently (Chronic) Medical History (Updated 04/01/23 @ 16:41 by Justyna Ptit MD) History of DVT (deep vein thrombosis) Social History Smoking/Tobacco Use Status: Never Smoking risk assessment performed?: Yes Alcohol Intake: never Substance use type: does not use Housing: apartment Visit Medication and Allergies Active Medications Generic Name Dose Route Start Last Admin Trade Name Freq PRN Reason Stop Dose Admin Acetaminophen 0 mg 03/29/23 01:14 03/29/23 16:27 Acetaminophen 325 Mg Tab PO 650 mg Q4H PRN PRN Administration Al Hydrox/Mg Hydrox/Simethicone 30 ml 03/29/23 01:14 Mylanta Suspension 30 Ml Cup PO Q2H PRN PRN Albuterol Sulfate 2.5 mg 04/01/23 11:03 Albuterol 2.5 Mg/3 Ml Inh Soln Vial UPD Q2H PRN PRN Albuterol/Ipratropium 3 ml 04/01/23 12:00 04/01/23 11:42 Albuterol/Ipratropium 3 Ml Upd Vial UPD 3 ml QID EMMA Administration Amitriptyline HCl 10 mg 03/29/23 22:00 03/31/23 21:16 Amitriptyline 10 Mg Tab PO 10 mg HS EMMA Administration Amoxicillin/Clavulanate Potassium 1 tab 04/01/23 20:00 Amoxicillin 875/Clav. 125 Tab PO BID EMMA Aripiprazole 20 mg 03/29/23 22:00 03/31/23 21:16 Aripiprazole 5 Mg Tab PO 20 mg HS EMMA Administration Bupropion HCl 450 mg 03/29/23 08:30 04/01/23 09:29 Bupropion-Xl 150 Mg Tabcr PO 450 mg DAILY EMMA Administration Carbidopa/Levodopa 1 tab 04/01/23 12:55 Carbidopa 25/Levodopa 100 Tab PO TID [facility] Cholecalciferol 2,000 units 03/29/23 08:30 04/01/23 09:30 Cholecalciferol (Vitamin D3) 1,000 Unit Tab PO 2,000 units DAILY EMMA Administration Cyanocobalamin 500 mcg 03/29/23 08:30 04/01/23 09:31 Cyanocobalamin 500 Mcg Tab PO 500 mcg DAILY EMMA Administration Dimethicone/Zinc Oxide 0 gm 03/29/23 01:14 Emigdio Protect Cream 142 Gm Tube TP PRN PRN Docusate Sodium 100 mg 03/29/23 01:14 Docusate Sodium 100 Mg Cap PO TID PRN PRN Duloxetine HCl 60 mg 03/29/23 08:30 04/01/23 09:29 Duloxetine 30 Mg Cap PO 60 mg DAILY EMMA Administration Famotidine 20 mg 04/01/23 08:30 04/01/23 09:31 Famotidine 20 Mg Tab PO 20 mg DAILY EMMA Administration Finasteride 5 mg 03/29/23 08:30 04/01/23 09:31 Finasteride 5 Mg Tab PO 5 mg DAILY [facility]MA Administration Gabapentin 600 mg 03/31/23 14:00 04/01/23 09:31 Gabapentin 600 Mg Tab PO 600 mg TID [facility]MA Administration Guaifenesin 600 mg 04/01/23 11:05 Guaifenesin 600 Mg Tabcr PO BID [facility] Heparin Sodium (Porcine) 5,000 units 03/29/23 06:00 04/01/23 05:04 Heparin 5,000 Units/Ml Vial SC 5,000 units Q8H [facility] Administration Sodium Chloride 500 mls @ 0 mls/hr 03/29/23 12:42 03/30/23 08:53 Saline 500ml Bag IV Infused PRN PRN Infusion As Directed IV Miscellaneous Supplies 1 each 03/29/23 12:45 Iv Access IV DIRECTED [facility] Lactobacillus Acidophilus/Casei 1 cap 04/01/23 08:30 04/01/23 09:31 L. Acidophilus, Casei, Rhamnosus Cap PO 1 cap DAILY [facility]MA Administration Levothyroxine Sodium 75 mcg 03/29/23 07:00 04/01/23 05:04 Levothyroxine 75 Mcg Tab PO 75 mcg 0600 [facility]MA Administration Loperamide HCl 2 mg 03/31/23 01:32 03/31/23 08:38 Loperamide 2 Mg Cap PO 2 mg QLOOSE PRN Administration Magnesium Hydroxide 30 ml 03/29/23 01:14 Milk Of Magnesia 30 Ml Cup PO DAILY PRN PRN Magnesium Oxide 800 mg 03/31/23 08:30 04/01/23 11:16 Magnesium Oxide 400 Mg Tab PO 800 mg BID [facility]MA Administration Metoprolol Succinate 25 mg 03/29/23 08:30 04/01/23 09:31 Metoprolol Cr 25 Mg Tabcr PO 25 mg DAILY [facility] Administration Olanzapine 5 mg 03/29/23 22:00 03/31/23 21:17 Olanzapine 5 Mg Tab PO 5 mg HS [facility] Administration Polyethylene Glycol 17 gm 03/29/23 01:14 Polyethylene Glycol 3350 17 Gm Packet PO DAILY PRN PRN Constipation Potassium Chloride 20 meq 04/01/23 08:30 04/01/23 09:32 Potassium Chloride 10 Meq Capcr PO 04/01/23 20:01 20 meq TID [facility] Administration Potassium Chloride 20 meq 04/02/23 08:30 Potassium Chloride 10 Meq Capcr PO DAILY [facility] Pramipexole Dihydrochloride 1 mg 03/29/23 22:00 03/31/23 21:16 Pramipexole 0.5 Mg Tab PO 1 mg HS [facility] Administration Psyllium Hydrophilic Mucilloid 1 each 04/01/23 14:00 Psyllium Pkt PO TID [facility] Sodium Chloride 0 ml 03/29/23 08:48 03/30/23 10:40 Normal Saline Flush 10 Ml Syr IVP 20 ml PRN PRN Administration Tamsulosin HCl 0.4 mg 03/29/23 22:00 03/31/23 21:16 Tamsulosin 0.4 Mg Capcr PO 0.4 mg HS [facility] Administration Warfarin Sodium 2.5 mg 04/01/23 20:00 Warfarin 2.5 Mg Tab PO [email or web address] [facility] Warfarin Sodium 5 mg 03/31/23 20:00 03/31/23 20:15 Warfarin 2.5 Mg Tab PO 5 mg [email or web address] [facility] Administration Allergies No Known Allergies Allergy (Verified 03/29/23 02:30) Exam Narrative Exam Narrative: Physical Exam: Gen: Patient of apparent stated age, NAD, mild-moderate hypomimia Head and face: no facial or cranial abnormalities Neck: Supple, no meningismus, no occipital tenderness CV: + S1, S2, RRR, no murmur Resp: CTA B/L Abd: soft, nontender, nondistended Ext: No edema. No clubbing or cyanosis. No bony deformity. Neuro Exam: Language: fluency, naming, repetition, and comprehension intact; Mental Status: AAOx3, current events limited, fund of knowledge impaired Speech: no dysarthria; mild hypophonia Cranial nerves: Funduscopy: not performed CN II: visual fuentes intact CN III, IV, : extraocular movements intact, no nystagmus, pupils symmetric and reactive to light CN V: face sensation intact to LT and PP CN VII: no facial asymmetry noted CN VIII: hearing intact bilaterally CN IX, X: palate rises symmetrically CN XI: trapezius/SCM 5/5 bilaterally CN XII: protrudes tongue symmetrically Sensory: intact to LT, PP, vibration, and joint position in all extremities Motor: bulk intact. Fine motor movements intact bilaterally. No pronator drift. Mild diffuse bradykinesia. Mild bilateral cogwheel rigidity. Strength 5/5 throughout including the deltoids, biceps, triceps, wrist extensors, hip flexors, knee flexors, knee extensors, ankle flexors, and ankle extensors. Mild bilateral UE postural tremor; LUE mild action tremor. Unable to stand without use of arms and then still with some effort. Very shaky legs upon standing. Does not feel dizzy. Reflexes: 2+ at the biceps, triceps, brachioradialis; absent at the patella and achilles tendons bilaterally; toes neutral bilaterally; no clonus; neg Ferraro/Tromner Coordination: FTN and HTS intact bilaterally Gait: unable to test Results Last Vital Signs Temp 98.2 F 04/01/23 10:49 Pulse 82 04/01/23 11:47 Resp 16 04/01/23 11:47 BP 115/74 04/01/23 10:49 Pulse Ox 97 04/01/23 11:47 Labs 03/31/23 05:36 04/01/23 05:48 Labs: Laboratory Results - last 24 hr 03/31/23 04/01/23 04/01/23 14:30 05:48 05:48 PT INR Sodium 141 Potassium 3.5 3.3 L Chloride 106 Carbon Dioxide 27.7 Anion Gap 7.3 BUN 17 Creatinine 1.5 H Est GFR (CKD-EPI 2020) 53.63 Glucose 134 H Calcium 8.7 Magnesium 1.9 04/01/23 05:48 PT 10.3 INR 1.0 Sodium Potassium Chloride Carbon Dioxide Anion Gap BUN Creatinine Est GFR (CKD-EPI 2020) Glucose Calcium Magnesium
[2023-04-01] MEDS: Carbidopa 25/Levodopa 100 TAB PO ×2 (13:18→20:24)
[2023-04-01] MEDS: Amoxicillin 875/Clav. 125 TAB PO ×2 (13:18→20:23)
[2023-04-01] MEDS: guaiFENesin 600 MG TABCR PO ×2 (13:18→20:24)
--- NOTE | 2023-04-01 15:24 | PT.INTREAT ---
PT Notes Visit Reasons: Rhabdomyolysis Inpatient Physical Therapy Treatment Note [facility] Date: 04/01/23 PRECAUTIONS:fall SUBJECTIVE: Jarad states that he is very tired. He is not up for walking, but is agreeable to exercises. States that he still feels very off balance. He met with Dr. Butterfield today, and started a PD med about 2 hours ago. OBJECTIVE: PAIN: right knee, chronic, baseline BED MOBILITY/TRANSFERS Rolling L/R: independent Scooting in bed: independent Supine-sit: supervision Sit-supine: supervision Sit-stand: CGA Stand-sit: CGA Bed-Chair: declines GAIT : declines THEREX: Heel Slides 5x each, cues for large amplitude, increased velocity, stomp! SLR 5x5 seconds each, cues for technique and velocity Seated LAQ 10x each seated forward reach 5x, cues for amplitude and velocity (big upright posture, reach forward, reach to floor, reach to ceiling, hold arms out) standing november 10x with UE support, CGA (stopped due to increasing right knee pain) small NARCISA standing without UE support, 30 seconds, CGA (significant apprehension, increased trunk sway) small NARCISA standing with trunk rotation, 3x each side, CGA, limited range sit-stand, no UE support, bed elevated, wide NARCISA, CGA. Cues for balance upon standing, 5x ASSESSMENT: Very fatigued after increased activity today. Responds very well to cues for improved amplitude and velocity of movement. Continues to demonstrate significant balance impairment, with inability to independently statically stand without support. PLAN: Continue progressing gait and balance with utilization of large amplitude movement patterns. TREATMENT CODE/TIME: [id number] ([id number]) Nichelle Martin, PT, DPT [facility]
--- NOTE | 2023-04-01 16:08 | IN_ITS ---
Date of service: 04/01/23 Time of Service: 09:56 PT Notes Visit Reasons: Rhabdomyolysis Inpatient Physical Therapy Evaluation Date: 04/01/23 Referring Doctor:? Joel Porter MD PT Orders: PT CONSULT: Extended Stay weakness Precautions: Fall. Standard. Activity as tolerated. Patient Profile/Admitting Diagnosis:?? Jarad is being re-evaluated for PT services due to change in medical status requiring ICU level of care as of 03/30/2023 for management of acute respiratory failure with hypoxia, aspiration pneumonia, pulmonary edema, hypokalemia, diarrhea, Factor V Leyden mutation, frequent falls, chronic mental illness, rhabdomyolysis, and sacral area decubitus ulcer. He returned to med surg on 03/31/2023 for continued rehabilitation and functional mobility progression. PmHx: All Active Problems? 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 Uses FWW independently at baseline. Equipment Owned/DME: FWW Subjective:? Agreeable to trying out walking using the FWW today. Complains of pain in B feet at 4/10. Reports mild shortness of breath that resolved with rest. States that he will call his sister so she may bring his shoes from home to minimize pain with walking, patient however did not report increased pain with ambulation using FWW later in the session. Objective:? General Observation: Resting in bed with IV in LUE. Telemetry in place. No additional lines. Motor response much improved this morning compared to last Saturday afternoon. Mental Status: Appeared more responsive than he did last Saturday. Alert and oriented as to person, place, and time. Pain: B feet at 4/10 ROM: Right Upper Extremity: Shoulder Flexion lacks the last 25% of AROM. Shoulder abduction lacks the last 25% of AROM. Elbow flexion WFL. Wrist flexion WFL. Functional opening and closing of hand WFL. Left Upper Extremity: Shoulder Flexion lacks the last 25% of AROM. Shoulder abduction lacks the last 25% of AROM. Elbow flexion WFL. Wrist flexion WFL. Functional opening and closing of hand WFL. Right Lower Extremity: Hip flexion lacks the last 25% of AROM. Hip abduction WFL. Knee flexion WFL. Ankle dorsiflexion to neutral only. Ankle plantarflexion WFL. Left Lower Extremity: Hip flexion lacks the last 25% of AROM. Hip abduction WFL. Knee flexion WFL. Ankle dorsiflexion to neutral only. Ankle plantarflexion WFL. Strength: Right Upper Extremity: Shoulder flexors 3-/5. Shoulder abductors 3-/5. Elbow flexors 4-/5. Elbow extensors 4-/5. Vehicle Care Specialist strong. Left Upper Extremity: Shoulder flexors 3-/5. Shoulder abductors 3-/5. Elbow flexors 4-/5. Elbow extensors 4-/5. Vehicle Care Specialist strong. Right Lower Extremity: Hip flexors 3-/5. Hip abductors 3-/5. Knee flexors 4-/5. Knee extensors 4-/5. Ankle dorsiflexors 4-/5. Ankle plantarflexors 4-/5. Left Lower Extremity: Hip flexors 3-/5. Hip abductors 3-/5. Knee flexors 4-/5. Knee extensors 4-/5. Ankle dorsiflexors 4-/5. Ankle plantarflexors 4-/5. Sensation:? Intact in B LE as to pain and light pressure Bed Mobility/Transfers: Supine-sit: stand by assist with HOB at about 30 degrees Sit-stand: minimal assist using FWW, cues provided for hand placement stand-sit: contact guard assist, cues provided for hand placement Gait:? Covered 100 feet + 150 feet using FWW with minimal assist and wheelchair follow, one seated rest needed. Nurse Renae helped with wheelchair follow initially during the first 100 feet. Trunk much erect this morning than it was last Saturday afternoon. Step length however is asymmetric. Step height decreased. Some occasional trunk lean to R noted. Gait speed decreased. Minimal path deviation noted. Vital signs taken after first 100 feet of walk all WNL. Balance:? Static Sitting: Good Dynamic Sitting: Fair Static Standing: Fair Dynamic Standing: Poor Special Tests: Mobility Limitations Standardized Measure [facility] 6 clicks Basic Mobility Inpatient Short Form: Raw Score: 19 ? CMS Score: 42% impairment ? ? ? Rapid alternating movement: Impaired 4-Stage balance Test: Unable to maintain all four positions for 10 seconds indicating a risk for falls Informed Consent/Education:? Patient instructed in purpose of PT consult and plan of care. Assessment:?? Patient demonstrates functional mobility decline requiring assistance of 1 caregiver and the consistent use of FWW for safety. Fatigue limits activity tolerance. Motor execution much more fluid this morning than it was last Saturday afternoon, bradykinesia persistent but improved. Level of independence improved compared to Saturday afternoon's transfer and short distance ambulation which needed two people for safe transfer from bedside to chair. Jarad is being re-evaluated for PT services due to change in medical status requiring ICU level of care as of 03/30/2023 for management of acute respiratory failure with hypoxia, aspiration pneumonia, pulmonary edema, hypokalemia, diarrhea, Factor V Leyden mutation, frequent falls, chronic mental illness, rhabdomyolysis, and sacral area decubitus ulcer. He returned to med surg on 03/31/2023 for continued rehabilitation and functional mobility progression. Patient presents with clinical signs and symptoms consistent with current/admitting diagnoses that have resulted to mobility limitations, gait instability, generalized weakness, and overall ADL decline as demonstrated by the following impairment level findings: 1. Decreased strength to B UE/LE major muscle groups 2. Impaired sitting/standing balance 3. Impaired activity tolerance 4. Limitation of joint range of motion in B shoulder and hips 5. Shortness of breath 6. Impaired motor initiation.completion Impairments are contributing to the following functional limitations: 1. Decline in bed mobility skills 2. Decline in transfer skills 3. Difficulty with ambulation without assistive device and physical assistance 4. Increased completion time for mobility ADL performance 5. Increased risk for falls 6. Difficulty with managing steps alone safely Patient is assessed as a 85046 moderate complexity based on the following: History: 57-year-old male with past medical history as indicated above Examination: Demonstrable impairment in strength, balance, and mobility level with underlying impairments and functional limitations as exhibited above as well as deficit score of 47% utilizing the [facility] Mobility Inpatient Short Form Presentation: Evolving Decision Makin moderate complexity Goals: Goals X1 week 1. Supine-Sit independent 2. Sit-Supine independent 3. Sit-Stand independent 4. Stand-Sit independent 5. Bed-Chair independent 6. Chair-Bed independent 7. Stand by assist with gait on level surface with use of FWW for at least 300 feet without report of pain nor dyspnea 8. Good static and dynamic standing balance/tolerance Plan of Care/Treatment Plan: -1-2x/day, 7 days/week x 1 week. -Plan of care has been reviewed with the FORENSIC ANALYST providing the service under Physical Therapy direction. Initiate Physical Therapy intervention for strengthening, bed mobility, transfers, gait, stairs, balance training, use of assistive device. -Coordinate treatment session within an hour or so of Sinemet intake for maximized performance. Allow adequate rests in between activity. Emphasize large amplitude limb movements to allow improved motor processing/execution d uring mobility performance. DISCHARGE RECOMMENDATIONS: Patient will benefit from intermediate facility placement for continued skilled physical therapy services in order to progress mobility level, strength, and balance in preparation for a safe discharge to home. TREATMENT CODE/TIME: 41529 x 20 minutes, 42488 x 10 minutes beginning at 9:56 AM. Thank you for the opportunity to participate in the care of this patient. Tash Hernandez PT, DPT, CLT [facility] [place], [place] .
--- NOTE | 2023-04-01 16:12 | PDOC.CMPRO ---
Date of service: 04/01/23 Time of Service: 16:12 Care Management Progress Note Progress Note Text Progress Note Text: S/O: Jarad was sitting up in bed when CM met with him. He stated that he is feeling better than when he arrived, and has been working with PT. Per PT, he is requiring minimal assist with mobility. CM spoke to Mathew Thomas, his adult protective caseworker from [facility] in [place]. Mathew confirmed that Jarad is independent at baseline, lives alone and drives his own vehicle. He reported that Jarad will likely be admitted to the Care Bed once he is medically stable, as long as he is able to ambulate independently. CM discussed the option of him going to short term rehab prior to the Care Bed vs prior to home, if needed. Jarad asked if a referral could be sent to [facility], along with the other facilities where referrals have been sent; referral was sent to [facility]. Mathew, adult protective caseworker, stated that [facility] med RN would be happy to consult with MD/hospitalist to discuss psychiatric medications, if appropriate. CM will continue to follow. A: Jarad is a 57 year old male admitted to [facility] on 03/29/23 for rhabdomyolysis. P: Anticipate Jarad will go to the Care Bed vs SNF once medically cleared. His transportation will depend on his disposition, which is unclear at this time. He will follow up with his PCP and discharge plan of care. CM will continue to follow.
--- NOTE | 2023-04-01 17:05 | PT.INTREAT ---
Date of service: 03/29/23 Time of Service: 11:41 PT Notes Visit Reasons: Rhabdomyolysis Inpatient Physical Therapy Treatment Note [facility] Date: 03/29/2023 PRECAUTIONS: Activity as tolerated. Falls. Standard. SUBJECTIVE: Agreeable to being transferred to chair from edge of bed for lunch. OBJECTIVE: Nurse Menon and JOSE ENRIQUE Navarrete were trying to transfer patient to bedside chair but were having an issue moving the patient. PAIN: Denies BED MOBILITY/TRANSFERS Sit-stand: Minimal assist of 2, moderate cueing for hand placement and trunk positioning Stand-sit: Minimal assist, moderate cueing for hand placement and trunk positioning Bed-Chair: Minimal assist of 2, bradykinesia and fatigue limiting quality and safety of movement GAIT Assistive Device: FWW Weight bearing: FWB Assist: Minimal assist of 2 Distance: 8 steps from edge of bed to bedside chair Deviation: Step height and length asymmetric, trunk lean to R noted. Moderate verbal, visual, and tactile cues given for safety THERA EX: LAQ x 10 Seated marches x 10 B shoulder flexion/extension x 10 Balance: Static sitting: Fair Dynamic sitting: Poor Static standing: Poor Dynamic standing: Unable ASSESSMENT: Initiation, execution, and termination of movement impaired, increasing risk for falls. Patient requires the help of 2 caregivers for transfers to and from bedside chair for safety. Verbal responses slowed down. Fatigue and activity tolerance signifincatly decreased. PLAN: Progress strength, balance, and mobility level as tolerated DISCHARGE RECOMMENDATIONS: SNF versus home health PT based on ability to progress towards goals TREATMENT CODE/TIME: 76502 x 15 minutes, 80070 x 9 minutes beginning at 11:41 AM.
[2023-04-01] MEDS: Amitriptyline 10 MG TAB PO (21:50)
[2023-04-01] MEDS: Pramipexole 0.5 MG TAB 1 MG PO (21:50)
[2023-04-01] MEDS: OLANZapine 5 MG TAB PO (21:50)
[2023-04-01] MEDS: Tamsulosin 0.4 MG CAPCR PO (21:50)
[2023-04-01] MEDS: ARIPiprazole 5 MG TAB 20 MG PO (21:50)
[2023-04-01] MEDS: Acetaminophen 325 MG TAB PO (22:38)
[2023-04-02] VITALS (7 sets, daily range): BP systolic 95–109; BP diastolic 57–72; PULSE 79–90; RESP 1–20; TEMP 36.1–36.8; O2SAT 94–99
[2023-04-02] MEDS: Heparin 5,000 UNITS/ML VIAL 5000 UNITS SC ×3 (05:38→21:45)
[2023-04-02] MEDS: Levothyroxine 75 MCG TAB PO (05:38)
[2023-04-02 06:22] LABS: Abs Immature Grans 0.03 10^3/uL (0.0-0.06); Absolute Basophil Count 0.03 10^3/uL (0.0-0.2); Absolute Eosinophil Count 0.42 10^3/uL (0.0-0.7); Absolute Lymphocyte Count 1.09 10^3/uL (1.2-3.4); Absolute Monocyte Count 0.47 10^3/uL (0.1-0.8); Absolute Neutrophil Count 3.64 10^3/uL (1.2-6.7); Basophils % 0.5; Eosinophils % 7.4; HCT 29.9 % (40.0-50.0); HGB 9.5 g/dL (13.5-17.5); Immature Grans % 0.5; Lymphocytes % 19.2; MCHC 31.8 % (32.0-36.0); MCV 94 fL (80-95); MPV 11.5 fL (8.0-11.0); Monocytes % 8.3; Neutrophils % 64.1; Platelet Count 270 10^3/uL (130-400); RBC 3.17 10^6/uL (4.36-5.78); RDW 13.6 % (11.8-14.1); RDW-SD 47.5 fL; WBC 5.68 10^3/uL (4.4-10.8)
[2023-04-02 06:31] LABS: INR 1.1 (0.9-1.1)
[2023-04-02 06:37] LABS: Anion Gap 5.9 mmol/L (3-11); BUN 19 mg/dL (7-18); CO2 28.1 mmol/L (21.0-32.0); CREATININE 1.4 mg/dL (0.70-1.30); Calcium 8.8 mg/dL (8.5-10.1); Chloride 106 mmol/L (98-107); Estimated GFR 58.26 (mL/min/1.73m2); Glucose 124 mg/dL (74-106); Potassium 3.2 mmol/L (3.5-5.1); Sodium 140 mmol/L (136-145)
[2023-04-02] MEDS: Magnesium Oxide 400 MG TAB 800 MG PO ×2 (08:38→19:43)
[2023-04-02] MEDS: DULoxetine 30 MG CAP 60 MG PO (08:38)
[2023-04-02] MEDS: Acetaminophen 325 MG TAB PO (08:39)
[2023-04-02] MEDS: Amoxicillin 875/Clav. 125 TAB PO ×2 (08:39→19:44)
[2023-04-02] MEDS: Metoprolol CR 25 MG TABCR PO (08:39)
[2023-04-02] MEDS: buPROPion-XL 150 MG TABCR 450 MG PO (08:39)
[2023-04-02] MEDS: Cholecalciferol (Vitamin D3) 1,000 UNIT TAB 2000 UNITS PO (08:39)
[2023-04-02] MEDS: Cyanocobalamin 500 MCG TAB PO (08:39)
[2023-04-02] MEDS: Famotidine 20 MG TAB PO (08:39)
[2023-04-02] MEDS: Carbidopa 25/Levodopa 100 TAB PO ×3 (08:39→19:43)
[2023-04-02] MEDS: Finasteride 5 MG TAB PO (08:39)
[2023-04-02] MEDS: Potassium Chloride 10 MEQ CAPCR 20 MEQ PO (08:40)
[2023-04-02] MEDS: Gabapentin 600 MG TAB PO ×3 (08:40→19:43)
[2023-04-02] MEDS: guaiFENesin 600 MG TABCR PO ×2 (08:40→19:43)
[2023-04-02] MEDS: Psyllium PKT 1 EACH PO ×3 (09:29→19:44)
[2023-04-02] MEDS: Potassium Chloride 20 MEQ TABCR 40 MEQ PO (10:03)
--- NOTE | 2023-04-02 11:50 | PT.INTREAT ---
Date of service: 04/02/23 Time of Service: 08:50 PT Notes Visit Reasons: Rhabdomyolysis Inpatient Physical Therapy Treatment Note [facility] Date: 04/02/2023 PRECAUTIONS: Fall, Activities as tolerated, standard SUBJECTIVE: Stated he is okay with taking a walk after having his breakfast. OBJECTIVE: PAIN: Right heel has been hurting when he walks. Started bothering just before coming to PT. This information was given to supervising PT. BED MOBILITY/TRANSFERS Up in chair when I arrived to room. GAIT Assistive Device: FWW Weight bearing: Full Assist: SBA Distance: 120ft x 1, with w/c behind us incase he needed to rest but did not use. Did have patient perform standing marching for 10 reps prior to ambulation into hallway. Deviation: Slow controlled gait THEREX: Performed LAQs x 15 reps, seated marching x 10 reps, seated hip abd/ adduction x 10 reps and seated bilateral shoulder flexion/ extension x 10 reps. Chair alarm activated at conclusion of session. ASSESSMENT: Slow response to questions and movement, but answering appropriately and willing to do as asked of him. PLAN: Continue to focus on improved mobility for ADL function. TREATMENT CODE/TIME: 49237 x 1, 8:50 to 9:12 am (22 minutes)
--- NOTE | 2023-04-02 12:27 | W.PM.PROGNOT ---
Date of Service Date of service: 04/02/23 Time of Service: 12:27 Assessment and Plan Assessment and plan (1) Falls frequently: Status: Chronic (2) Generalized weakness: Status: Acute (3) Rhabdomyolysis: Status: Resolved (4) Parkinsonism: Status: Acute Assessment and plan: Mr. Brown presents with frequent falls and generalized weakness with recent rhabdomyolysis. He has mild Parkisonian features on exam, likely due to his long-term use of neuroleptic medications. His weakness and falls are likely multifactorial from the previously described conditions and likely deconditioning. I don't see any si/sx of myelopathy at this time. He was started on Sinemet 25/100mg TID at 7am, noon, and 5pm yesterday with unclear response; but was able to ambulate with PT today. I recommend continuing Sinemet unchanged for now. Continue with PT and discussed SNF placement with him today. He should f/up in neurology in 1-2 months following discharge. Subjective Subjective Interval history since last seen: Mr. Brown reports no significant change in ambulation s/p starting Sinemet. However, able to walk with PT this am! He otherwise is well with no complainst. No obvious ADRs from Sinemet. Exam Narrative Exam Narrative: Physical Exam: Sinemet taken ~4hr prior Constitutional: Patient of apparent stated age, no acute distress, mild-moderate hypomimia Neuro: MS/Language/Speech: Alert, oriented, clear language (fluency and comprehension), no dysarthria, mild hypophonia Motor: bulk intact. Fine motor movements intact bilaterally. No pronator drift. ?subtle diffuse bradykinesia. ?Subtle bilateral cogwheel rigidity. Strength 5/5 throughout the bilateral LE. Subtle LUE postural tremor today only, slightly worse with activity. Coordination: Finger to nose performed without dysmetria Gait: did not test as he was eating lunch Objective Last Vital Signs Temp 97.0 F L 04/02/23 07:12 Pulse 83 04/02/23 07:12 Resp 18 04/02/23 07:12 BP 109/72 04/02/23 07:12 Pulse Ox 94 04/02/23 07:12 Laboratory Results - last 24 hr 04/02/23 04/02/23 04/02/23 05:58 05:58 05:58 WBC 5.68 RBC 3.17 L Hgb 9.5 L Hct 29.9 L MCV 94 MCH 30.0 MCHC 31.8 L RDW 13.6 Plt Count 270 MPV 11.5 H Immature Gran % 0.5 Neutrophils % 64.1 Lymphocytes % 19.2 Monocytes % 8.3 Eosinophils % 7.4 Basophils % 0.5 Nucleated RBC % 0.0 Absolute Neutrophils 3.64 Absolute Lymphocytes 1.09 L Absolute Monocytes 0.47 Absolute Eosinophils 0.42 Absolute Basophils 0.03 PT 11.0 INR 1.1 Sodium 140 Potassium 3.2 L Chloride 106 Carbon Dioxide 28.1 Anion Gap 5.9 BUN 19 H Creatinine 1.4 H Est GFR (CKD-EPI 2020) 58.26 Glucose 124 H Calcium 8.8 Magnesium 2.0 Time Spent with Patient Time Spent with Patient: 25-34 minutes Time was spent: preparing to see the patient(eg.review tests), referring, communicating with other health career services officer, counseling the patient and care coordination
--- NOTE | 2023-04-02 13:38 | CMPROGNOTE_ITS ---
Date of service: 04/02/23 Time of Service: 13:38 Care Management Progress Note Progress Note Text Progress Note Text: S/O: Jarad was sitting up in his chair when CM met with him. He stated that he is feeling much better. PT stated that he has made big improvements, and is now stand by assist. CM followed up on referrals sent to SNF's; no bed offer as of today. CM followed up with ANTELMO Pedersen, to facilitate his admission to the Care Bed. Nuvia stated that she will have staff meet with Jarad tomorrow morning to evaluate his ability to be independent while at the Care Bed. If accepted, he will transport via [facility] staff vs [facility] private vehicle. CM will continue to follow. A: Jarad is a 57 year old male admitted to [facility] on 03/29/23 for rhabdomyolysis. P:? Anticipate Jarad will go to the Care Bed vs SNF once medically cleared. His transportation will depend on his disposition, which is unclear at this time. He will follow up with his PCP and discharge plan of care. CM will continue to follow.
--- NOTE | 2023-04-02 14:51 | CHAPLAIN ---
Jarad was up in the chair when I visited. He was quiet and responded tentatively and slowly to questions. I explained my role and offered support. I will continue to visit.
[2023-04-02] MEDS: Albuterol/Ipratropium 3 ML UPD VIAL UPD ×2 (15:52→19:44)
--- NOTE | 2023-04-02 17:45 | PTTR_ITS ---
PT Notes Visit Reasons: Rhabdomyolysis Inpatient Physical Therapy Treatment Note [facility] Date: 04/02/2023 PRECAUTIONS: Activity as tolerated.? Falls. Standard. SUBJECTIVE: Has been attempting to walk on his own with FWW x 3 however needed to be re- approached to participate in therapy today. While seated on chair patient appeared withdrawn, did not want to maintain eye contact. Informed Nurse Marian about issue who then came back with PT to try convince patient to do do ex ercises. reports pain in the sole of his last three toes and lateral forefoot and on his R knee. He refused attempts at this Pt and Nurse Marian to wear his shoes however, stating that he will wear them tomorrow instead. Only agreeable to seated exercises verbalizing that he has walked more than twice already today. OBJECTIVE: Pressure area noted on the plantar aspect fo the 4th MTP joint, TTP. Scabbed area on the lateral side of the L foot. Nurse Fonseca conducted the skin examination with PT present. L TKA scar well approximated and healed. ? PAIN: Minimal pain on above areas that did not limit patient from walking in terry hallway today THERA EX: B arms all the way up and down to touch B toes while seated on bedside chair and then back up x 10 increasing in speed towards the last 5 reps B LAQs then subsequent hip abduction, hip adduction, knee flexion x 5 increasing in speed as tolerated Seated marches encouraging patient to go as h up as he is able at increaing speeds x 10 ? ASSESSMENT:? Needed extensive encouragement in the afternoon to participate in PT but has be en attempting on his own to walk with a walker. Refused to walk and exercise in PT room. Unable to maintain eye contact throughout session. PLAN: Progress strength, balance, and mobility level as tolerated DISCHARGE RECOMMENDATIONS: SNF versus home health PT based on ability to progress towards goals TREATMENT CODE/TIME: 48398 x 19 minutes beginning at 16:26 PM.
[2023-04-02] MEDS: Tamsulosin 0.4 MG CAPCR PO (21:44)
[2023-04-02] MEDS: Pramipexole 0.5 MG TAB 1 MG PO (21:44)
[2023-04-02] MEDS: ARIPiprazole 5 MG TAB 20 MG PO (21:44)
[2023-04-02] MEDS: OLANZapine 5 MG TAB PO (21:44)
[2023-04-02] MEDS: Amitriptyline 10 MG TAB PO (21:45)
[2023-04-03 00:25] LABS: Campylobacter PCR Negative (Negative); Salmonella PCR Negative (Negative); Shiga Toxin PCR Negative (Negative); Shigella/Enteroinvasive Ecoli Negative (Negative)
[2023-04-03] MEDS: Levothyroxine 75 MCG TAB PO (05:44)
[2023-04-03] MEDS: Heparin 5,000 UNITS/ML VIAL 5000 UNITS SC (05:44)
[2023-04-03 06:42] LABS: Abs Immature Grans 0.02 10^3/uL (0.0-0.06); Absolute Basophil Count 0.02 10^3/uL (0.0-0.2); Absolute Eosinophil Count 0.38 10^3/uL (0.0-0.7); Absolute Lymphocyte Count 0.98 10^3/uL (1.2-3.4); Absolute Monocyte Count 0.56 10^3/uL (0.1-0.8); Absolute Neutrophil Count 3.68 10^3/uL (1.2-6.7); Basophils % 0.4; Eosinophils % 6.7; HCT 26.9 % (40.0-50.0); HGB 8.5 g/dL (13.5-17.5); Immature Grans % 0.4; Lymphocytes % 17.4; MCH 29.8 pg (27.0-33.0); MCHC 31.6 % (32.0-36.0); MCV 94 fL (80-95); MPV 11.4 fL (8.0-11.0); Monocytes % 9.9; Neutrophils % 65.2; Platelet Count 270 10^3/uL (130-400); RBC 2.85 10^6/uL (4.36-5.78); RDW 13.7 % (11.8-14.1); RDW-SD 47.2 fL; WBC 5.64 10^3/uL (4.4-10.8)
[2023-04-03 07:08] LABS: Anion Gap 8.6 mmol/L (3-11); BUN 20 mg/dL (7-18); CO2 25.4 mmol/L (21.0-32.0); CREATININE 1.4 mg/dL (0.70-1.30); Calcium 8.6 mg/dL (8.5-10.1); Chloride 108 mmol/L (98-107); Estimated GFR 58.26 (mL/min/1.73m2); Glucose 103 mg/dL (74-106); Magnesium 1.9 mg/dL (1.8-2.4); Potassium 3.5 mmol/L (3.5-5.1); Sodium 142 mmol/L (136-145)
[2023-04-03 07:23] LABS: INR 1.4 (0.9-1.1)
[2023-04-03 07:56] VITALS: BP 108/63; PULSE 83; RESP 19; TEMP 36.1; O2SAT 98
[2023-04-03] MEDS: Cholecalciferol (Vitamin D3) 1,000 UNIT TAB 2000 UNITS PO (08:08)
[2023-04-03] MEDS: Potassium Chloride 10 MEQ CAPCR 20 MEQ PO (08:08)
[2023-04-03] MEDS: Magnesium Oxide 400 MG TAB 800 MG PO (08:08)
[2023-04-03] MEDS: Gabapentin 600 MG TAB PO (08:08)
[2023-04-03] MEDS: guaiFENesin 600 MG TABCR PO (08:09)
[2023-04-03] MEDS: DULoxetine 30 MG CAP 60 MG PO (08:09)
[2023-04-03] MEDS: Cyanocobalamin 500 MCG TAB PO (08:09)
[2023-04-03] MEDS: Finasteride 5 MG TAB PO (08:09)
[2023-04-03] MEDS: Carbidopa 25/Levodopa 100 TAB PO ×2 (08:09→12:09)
[2023-04-03] MEDS: buPROPion-XL 150 MG TABCR 450 MG PO (08:09)
[2023-04-03] MEDS: Famotidine 20 MG TAB PO (08:09)
[2023-04-03] MEDS: Metoprolol CR 25 MG TABCR PO (08:09)
[2023-04-03] MEDS: Psyllium PKT 1 EACH PO (08:10)
[2023-04-03] MEDS: Amoxicillin 875/Clav. 125 TAB PO (08:10)
--- NOTE | 2023-04-03 08:52 | OTIE_ITS ---
Occupational Therapy Notes Inpatient Occupational Therapy Evaluation Date: 04/03/23 Referring Doctor: Bridgette Granados MD OT Orders: Non Urgent Precautions: Fall, Standard, Full PATIENT PROFILE/ADMITTING DIAGNOSIS: Pt is a 57 year old male who was admitted through the ED on 03/28/23 due to weakness and imbalance. Past Medical History: All Active Problems?(Updated 03/29/23 @ 06:14 by Torrey Leach) Hypokalemia (Acute) Dehydration (Acute) Hypothyroidism (acquired) (Chronic) Mood disorder (Chronic) History of arthroplasty (Acute) Right kneeTremor due to disorder of central nervous system (Acute) Falls frequently (Chronic) Rhabdomyolysis (Acute) Social History/Home Situation: Pt reported that he lived in a trailer and was (I) at his baseline level of function. SUBJECTIVE: Pt was sitting in chair he reports that he will only perform the minimum and then would like to be done with all services. OBJECTIVE: General Observation: IV in (L) UE, flat affect d/t medication, delayed processing of questions. Mental Status: A&Ox3 ROM: RUE AROM WFL L UE AROM WFL STRENGTH: RUE 4/5 LUE 4-/5 FUNCTIONAL MOBILITY/ADLS: Transfers Sit-Stand SBA Stand-sit SBA BATHING Pt states that he will only wash his face and then is not interested in services. Bathing UE washing face (I) DRESSING seated in chair Dressing UE min vc but able to perform Dressing LE min (A) denies the need for sock aide TOILETING on toilet (I) EATING seated in chair (I) BALANCE: Static sitting Normal Dynamic Sitting Normal Static Standing Good Dynamic Standing Good INFORMED CONSENT/EDUCATION: Pt instructed in purpose of OT Consult and plan of care. ASSESSMENT: Patient is a 57-year-old male referred to occupational therapy services with diagnosis of Parkinsonism, generalized weakness, facotr V Leiden mutation, acute respiratory failure with hypoxia, aspiration pneumonia, chronic mental illness, pulmonary edema, ducubitus ulcer of sacral area, (R) foot ulcer, hypokalemia, dehydration, hypothyroidism, mood disorder, falls frequently. Patient presents with clinical signs and symptoms consistent with dx, as demonstrated by the following impairment level findings/functional limitations: Impairments in functional activity tolerance, ADL/IADL and leisure activities, decreased standing ADLs, flat affect d/t parkinsonism, shuffle gait, requires vc and delayed response. Patient is assessed as a Moderate 55024 complexity based on the following: History: see above Examination: see functional limitations as noted above Presentation: evolving Decision Making: moderate complexity GOALS N/A seen for OT consult only. PLAN OF CARE/TREATMENT PLAN: Discharge from skilled OT services. DISCHARGE RECOMMENDATIONS Pt is being discharged today and will be discharged from skilled OT services at this time. TREATMENT TIME/MINUTES/CODES 61688, 20 minutes Nayeli Kaminski OTR/L [facility] [place], [place]
--- NOTE | 2023-04-03 08:54 | PT.INNT ---
PT Notes Visit Reasons: Rhabdomyolysis Patient assisted to bathroom with supervision, use of FWW, 10' of ambulation. Checked in with him x 3 over 40 minute period. Patient states, I will not be needing your services today... or ever. Will check in with him this afternoon. No charge.
--- NOTE | 2023-04-03 11:09 | DSE_ITS ---
Date of service: 04/03/23 Time of Service: 11:09 DS: Diagnosis Discharge Diagnosis (1) Aspiration pneumonia: Status: Acute (2) Pulmonary edema: Status: Resolved (3) Hypokalemia: Status: Acute (4) Diarrhea: Status: Acute (5) Factor V Leiden mutation: Status: Chronic (6) Falls frequently: Status: Chronic (7) Chronic mental illness: Status: Acute (8) Rhabdomyolysis: Status: Resolved (9) Hypothyroidism (acquired): Status: Chronic (10) Decubitus ulcer of sacral area: Status: Acute (11) Parkinsonism: Status: Acute Discharge Plan Disposition Patient Disposition: Other Disposition Not Listed Other Facility: care bed Condition: Stable Discharge Details Reason For Visit: Rhabdomyolysis Admit Date/Time: 03/29/23 00:29 Admit Provider: Joel Porter Attending Provider: Joel Porter Primary Care Provider: Baron Barbour Hospital Course Hospital Course: This is a 57-year-old male patient of [facility] who presented to the emergency department here after having fallen multiple times at home. He is fully anticoagulated on Coumadin for factor V Leiden mutation. He did not have a loss of consciousness or any fractures or major injuries from his falls. His work-up in the emergency department was concerning for rhabdomyolysis with a CPK of over thousand. He was started on IV hydration and admitted to the medical surgical unit for further monitoring and physical therapy evaluation. Hospital day 1 he went into respiratory failure thought to be due to a combination of fluid overload and a possible aspiration. He required BiPAP and was transferred to the intensive care unit for further monitoring and treatment. He was placed on broad-spectrum antibiotics and diuresed. He responded well to treatment and was weaned off oxygen and transferred back to the medical surgical unit for further physical therapy he was down stepped to Augmentin and continued to slowly progress. Physical therapy recommendations were for ongoing rehabilitation but he has been walking independently with his walker, gaining strength. Case management has been following and is now felt he would be better served discharged to the care bed. Hospital course was complicated with diarrhea stool cultures negative he was started on Metamucil and a probiotic. He was also evaluated by neurology for his ambulatory dysfunction and parkinsonian features on exam. He was started on Sinemet. Plan is for outpatient neurology follow- up. Medically he has been stable eating and drinking and is being transported to the care bed for further oversight. discharge discussed with DR Granados Equality Meds and New Rx's Prescriptions: New potassium chloride 10 mEq Capsule, Extended Release 20 meq PO DAILY Qty: 30 0RF loperamide 2 mg Capsule 2 mg PO QLOOSE PRNQty: 30 0RF famotidine 20 mg Tablet 20 mg PO DAILY Qty: 30 0RF carbidopa-levodopa 25-100 mg Tablet 1 tab PO TID@0700,1200,1700 Qty: 90 0RF amoxicillin-pot clavulanate 875-125 mg Tablet 1 tab PO BID Qty: 10 0RF Metamucil Sugar-Free (aspart) 3.4 gram/5.8 gram Powder 1 ea PO TID Qty: 60 0RF L. Acidophilus,Casei,Rhamnosus [Bio-K Plus] 1 tab PO DAILY Qty: 30 0RF Continued pramipexole 1 mg Tablet 1 mg PO QHS gabapentin 600 mg Tablet 600 mg PO TID olanzapine 5 mg Tablet 5 mg PO QHS warfarin 2.5 mg Tablet See Rx Instructions .ROUTE .COMPLEX Rx Instructions: 2.5 mg orally on Saturday, Saturday, and Saturday 5mg Orally on Saturday, , Saturday, and Saturday melatonin 3 mg Tablet 6 mg PO HS omeprazole 40 mg Capsule,Delayed Release(Dr/Ec) 40 mg PO DAILY acetaminophen 650 mg Tablet 1,300 mg PO Q8H PRN levothyroxine 75 mcg Tablet 75 mcg PO DAILY cyanocobalamin (vitamin B-12) 500 mcg Tablet 500 mcg PO DAILY tamsulosin [Flomax] 0.4 mg Capsule 0.4 mg PO HS amitriptyline 10 mg Tablet 10 mg PO QHS metoprolol succinate [Toprol XL] 25 mg Tablet Extended Release 24 Hr 25 mg PO DAILY lorazepam [Ativan] 1 mg Tablet 1.5 mg PO TID PRN finasteride 5 mg Tablet 5 mg PO DAILY aripiprazole [Abilify] 20 mg Tablet 20 mg PO DAILY duloxetine 60 mg Capsule,Delayed Release(Dr/Ec) 60 mg PO DAILY levocetirizine 5 mg Tablet 5 mg PO QPM cholecalciferol (vitamin D3) 50 mcg (2,000 unit) Tablet 50 mcg PO DAILY bupropion HCl 450 mg Tablet Extended Release 24 Hr 450 mg PO DAILY Discharge Instructions Instructions: Parkinson Disease (DC), Aspiration Pneumonia (DC), Chronic Diarrhea (DC) Stand Alone Forms: Nursing Discharge Form Referrals: Baron Barbour [Primary Care Provider] - 04/12/23 11:00 am Justyna Pitt MD [ [facility] STAFF PHYSICIAN] - 05/23/23 9:00 am Activity:: Activity as Tolerated Equipment/Supplies:: No Equipment Needed Diet:: As Tolerated Discharge Orders Discharge Orders: Discharge Order (Routine); Ordered 04/03/23 Ordered By: Angle Maravilla DS: Summary Time Spent with Patient providing and/or coordinating discharge services: Greater than 30 minutes Status at Discharge Functional status at discharge: uses cane/walker Overall status at discharge: patient is progressing back to baseline Mental Status: other Speech and Movement: speech and movement normal Mood: congruent mood and other Affect: blunted Exam Const General: no acute distress and ill appearing chronically Nutritional Appearance: thin Orientation: alert, awake and oriented x3 HENMT Head: normal to inspection, normocephalic and atraumatic Chest Chest: normal inspection of the chest Resp Effort & Inspection: normal respiratory effort Cardio Rate: regular rate Rhythm: regular rhythm GI Inspection: normal to inspection Skin General skin exam: no rashes or lesions noted Neuro General: patient alert, patient awake and patient oriented x3 Extrem General: normal to inspection Psych Appearance: grossly normal Mental Status: other Speech and Movement: speech and movement normal Mood: congruent mood and other Affect: blunted Attitude: avoids eye contact Thought Process: normal Thought Content: normal Insight: limited Judgment: limited DS: Data Vitals/I&O Vitals and I&O: Vital Signs Temperature 36.1 C L 04/03/23 07:56 Temperature Source Tympanic 04/03/23 07:56 Pulse 83 04/03/23 07:56 Pulse Rhythm Regular 04/03/23 08:25 Pulse 85 03/31/23 23:00 Respiratory Rate 19 04/03/23 07:56 Respiratory Effort Normal, Non-Labored 04/03/23 08:25 Respiratory Depth Normal 04/03/23 08:25 Respiratory Pattern Normal 04/03/23 08:25 Blood Pressure 108/63 04/03/23 07:56 Blood Pressure Mean 78 03/31/23 16:08 Blood Pressure Position Supine 03/31/23 07:45 Pulse Oximetry 98 04/03/23 07:56 Oxygen Delivery Method Room Air 04/03/23 07:56 Oxygen Flow Rate 0 04/03/23 07:56 Fraction of Inspired Oxygen (FIO2) 21 04/01/23 08:08 Pain Level 2 04/03/23 07:56 Comment Nurse was notified BP 04/02/23 22:39 Intake & Output 04/02/23 04/02/23 04/03/23 11:59 23:59 11:59 Intake Total 480 / 600 120 / 600 Output Total 250 / 750 500 / 750 600 / 600 Balance 230 / -150 -380 / -150 -600 / -600 Weight 84.7 kg 84.3 kg Intake: Oral 480 / 600 120 / 600 Output: Urine 250 / 750 500 / 750 Stool 600 / 600 Other: Urine Color Yellow Yellow Yellow Urine Appearance Clear Clear Urine Odor Normal Stool Size Moderate Small Copious Stool Characteristics Mucoid Soft Soft Perry Perry Formed Green Green Brown Green Voiding Methods Toilet Urinal Toilet Data Completed and Pending Labs on day of discharge: Labs from last 24 hours 04/03/23 04/03/23 04/03/23 12:00 06:16 06:16 WBC 5.64 RBC 2.85 L Hgb Pending 8.5 L Hct Pending 26.9 L MCV 94 MCH 29.8 MCHC 31.6 L RDW 13.7 Plt Count 270 MPV 11.4 H Immature Gran % 0.4 Neutrophils % 65.2 Lymphocytes % 17.4 Monocytes % 9.9 Eosinophils % 6.7 Basophils % 0.4 Nucleated RBC % 0.0 Absolute Neutrophils 3.68 Absolute Lymphocytes 0.98 L Absolute Monocytes 0.56 Absolute Eosinophils 0.38 Absolute Basophils 0.02 PT INR Sodium 142 Potassium 3.5 Chloride 108 H Carbon Dioxide 25.4 Anion Gap 8.6 BUN 20 H Creatinine 1.4 H Est GFR (CKD-EPI 2020) 58.26 Glucose 103 Calcium 8.6 Magnesium 1.9 Stool Campylobacter PCR Stool Salmonella PCR Stool Shigella PCR Shiga Toxin (PCR) 04/03/23 04/02/23 06:16 07:05 WBC RBC Hgb Hct MCV MCH MCHC RDW Plt Count MPV Immature Gran % Neutrophils % Lymphocytes % Monocytes % Eosinophils % Basophils % Nucleated RBC % Absolute Neutrophils Absolute Lymphocytes Absolute Monocytes Absolute Eosinophils Absolute Basophils PT 14.0 H INR 1.4 H Sodium Potassium Chloride Carbon Dioxide Anion Gap BUN Creatinine Est GFR (CKD-EPI 2020) Glucose Calcium Magnesium Stool Campylobacter PCR Negative Stool Salmonella PCR Negative Stool Shigella PCR Negative Shiga Toxin (PCR) Negative Preliminary micro results at discharge 03/31/23 14:40 Blood Culture - Preliminary Blood NO GROWTH 48 HOURS 03/31/23 14:30 Blood Culture - Preliminary Blood NO GROWTH 48 HOURS PFSH All Active Problems (Updated 04/01/23 @ 16:41 by Justyna Pitt MD) Parkinsonism (Acute) Generalized weakness (Acute) Factor V Leiden mutation (Chronic) Diarrhea (Acute) Acute respiratory failure with hypoxia (Acute) Aspiration pneumonia (Acute) Chronic mental illness (Acute) Decubitus ulcer of sacral area (Acute) Right foot ulcer (Acute) Hypokalemia (Acute) Dehydration (Acute) Hypothyroidism (acquired) (Chronic) Mood disorder (Chronic) History of arthroplasty (Acute) Right knee 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
[2023-04-03 12:29] LABS: HCT 32.8 % (40.0-50.0); HGB 10.2 g/dL (13.5-17.5)
--- NOTE | 2023-04-03 17:30 | CMDISCH_ITS ---
Date of service: 04/03/23 Time of Service: 17:30 LACE Index Scoring Tool Questions: Length of Stay (in days): 7 - 13 Was the patient admitted via the E.D.?: Yes E.D. Visits: 0 Answers: Total Score: 8 Risk of Readmission: Low Risk Care Management Discharge Plan Reason for Hospitalization: Rhabdomyolysis Discharge Plan: Jarad transitioned to the [facility] Care Bed today, a step down plan prior to returning home. CM coordinated his transition with his [employer] team at [facility]. [facility] provided private vehicle transport. He will follow up with his PCP and discharge plan of care. He is happy to be going to the Care Bed today. Patient/Family Education Needs: Review discharge instructions and limitations, discussion of self care needs including ask me three. Services Needed at Discharge: Transportation ([facility] [employer] private vehicle) MH Services (Omit if N/A) Current MH Services: [employer] Disposition Disposition: Crisis Bed ([facility] Care Bed) Transport via of: Private Vechicle ([facility] [employer])
--- NOTE | 2023-04-03 17:30 | PDOC.CMDIS ---
Date of service: 04/03/23 Time of Service: 17:30 LACE Index Scoring Tool Questions: Length of Stay (in days): 7 - 13 Was the patient admitted via the E.D.?: Yes E.D. Visits: 0 Answers: Total Score: 8 Risk of Readmission: Low Risk Care Management Discharge Plan Reason for Hospitalization: Rhabdomyolysis Discharge Plan: Jarad transitioned to the [facility] Care Bed today, a step down plan prior to returning home. 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 [facility] provided private vehicle transport. He will follow up with his PCP and discharge plan of care. He is happy to be going to the Care Bed today. Patient/Family Education Needs: Review discharge instructions and limitations, discussion of self care needs including ask me three. Services Needed at Discharge: Transportation ([facility] [employer] private vehicle) MH Services (Omit if N/A) Current MH Services: [employer] Disposition Disposition: Crisis Bed ([facility] Care Bed) Transport via of: Private Vechicle ([facility] [employer])
--- NOTE | 2023-04-04 08:55 | PT.INDS ---
Date of service: 04/04/23 PT Notes Visit Reasons: Rhabdomyolysis Inpatient Physical Therapy Inpatient Discharge Summary Date: 04/02/23 Dates of Service: 04/01/2023 through 04/02/2023 This is a clinical summary of care provided for the duration of dates listed above. No charge was made in the completion of this documentation. Referring Doctor:? Joel Porter,? PT Orders: PT CONSULT: Extended Stay weakness Precautions: Fall.? Standard.? Activity as tolerated. Patient Profile/Admitting Diagnosis:?? Jarad is being re-evaluated for PT services due to change in medical status requiring ICU level of care as of 03/30/2023 for management of acute respiratory failure with hypoxia, aspiration pneumonia, pulmonary edema, hypokalemia,? diarrhea, Factor V Leyden mutation, frequent falls, chronic mental illness,? rhabdomyolysis, and sacral area decubitus ulcer.? He returned to med surg on 03/31/2023 for continued rehabilitation and functional mobility progression. PmHx: All Active Problems? Hypokalemia (Acute) Dehydration (Acute) Hypothyroidism (acquired) (Chronic) Mood disorder (Chronic) History of arthroplasty (Acute) Right kneeTremor due to disorder of central nervous system (Acute) Falls frequently (Chronic) Rhabdomyolysis (Acute) Social History/Home Situation: Lives alone in a trailer with three steps to enter.? Uses FWW independently at baseline. Equipment Owned/DME: FWW Subjective:? NT. See most recent [employer] AIDE notes. Objective:? General Observation: NT. See most recent [employer] AIDE notes. Mental Status: NT. See most recent [employer] AIDE notes. Pain: NT. See most recent [employer] AIDE notes. ROM: Right Upper Extremity: ? Shoulder Flexion lacks the last 25% of AROM.? Shoulder abduction lacks the last 25% of AROM.? Elbow flexion WFL. Wrist flexion WFL. Functional opening and closing of hand WFL. Left Upper Extremity:? Shoulder Flexion lacks the last 25% of AROM.? Shoulder abduction lacks the last 25% of AROM.? Elbow flexion WFL. Wrist flexion WFL. Functional opening and closing of hand WFL. Right Lower Extremity: Hip flexion lacks the last 25% of AROM. Hip abduction WFL. Knee flexion WFL. Ankle dorsiflexion to neutral only. Ankle plantarflexion WFL. Left Lower Extremity: Hip flexion lacks the last 25% of AROM. Hip abduction WFL. Knee flexion WFL. Ankle dorsiflexion to neutral only. Ankle plantarflexion WFL. Strength: Right Upper Extremity: Shoulder flexors 3-/5. Shoulder abductors 3-/5. Elbow flexors 4-/5. Elbow extensors 4-/5. [employer] Plant Supervisor strong. Left Upper Extremity: Shoulder flexors 3-/5. Shoulder abductors 3-/5. Elbow flexors 4-/5. Elbow extensors 4-/5. [employer] Plant Supervisor strong. Right Lower Extremity: Hip flexors 3-/5. Hip abductors 3-/5. Knee flexors 4-/5. Knee extensors 4-/5. Ankle dorsiflexors 4-/5. Ankle plantarflexors 4-/5. Left Lower Extremity: Hip flexors 3-/5. Hip abductors 3-/5. Knee flexors 4-/5. Knee extensors 4-/5. Ankle dorsiflexors 4-/5. Ankle plantarflexors 4-/5. Sensation:? Intact in B LE as to pain and light pressure Bed Mobility/Transfers: Supine-sit: independent Sit-stand: independent stand-sit: independent Gait:? Able to ambulate up to up to 600 feet on level surfaces using his FWW with supervision. Step length however is asymmetric.? Step height decreased.? Some occasional trunk lean to R noted.? Gait speed decreased.? Minimal path deviation noted.? Balance:? Static Sitting:? Good Dynamic Sitting: Fair Static Standing: Fair Dynamic Standing: Poor Assessment:?? Needed extensive encouragement in the afternoon to participate in PT but has been attempting on his own to walk with a walker.? Refused to walk and exercise in PT room.? Unable to maintain eye contact throughout session on 04/02/2023.? Patient demonstrates functional mobility decline requiring supervision of a caregiver and the consistent use of FWW for safety.? Fluidity of motor execution improving.? Goals: Goals X1 week 1. Supine-Sit independent MET 2. Sit-Supine independent MET 3. Sit-Stand independent MET 4. Stand-Sit independent MET 5. Bed-Chair independent MET 6. Chair-Bed independent MET 7. Stand by assist with gait on level surface with use of FWW for at least 300 feet without report of pain nor dyspnea NOT MET 8. Good static and dynamic standing balance/tolerance NOT MET DISCHARGE RECOMMENDATIONS: Patient will benefit from jail facility placement for continued skilled physical therapy services in order to progress mobility level, strength, and balance in preparation for a safe discharge to home. TREATMENT CODE/TIME: TN Thank you for the opportunity to participate in the care of this patient. Tash Hernandez PT, DPT, CLT [facility] [place], [place]
== END 2023-04-03 14:03 | disposition other institution (70) | DRG 564 ==
LOC: ER 03-29 00:38 → MS 03-29 01:44 → ICU 03-30 02:20 → MS 03-31 18:26
PROVIDERS: Family Medicine; Internal Medicine; Admitting Provider Internal Medicine; Emergency Provider Emergency Medicine; PCP Family Medicine; Visit Provider Internal Medicine
DX: T79.6XXA Traumatic ischemia of muscle, initial encounter (principal); J69.0 Pneumonitis due to inhalation of food and vomit; J96.01 Acute respiratory failure with hypoxia; L97.419 Non-pressure chronic ulcer of right heel and midfoot with unspecified severity; E87.20 Acidosis, unspecified; D68.51 Activated protein C resistance; G21.11 Neuroleptic induced parkinsonism; R26.9 Unspecified abnormalities of gait and mobility; E86.0 Dehydration; E87.6 Hypokalemia; G96.9 Disorder of central nervous system, unspecified; F39 Unspecified mood [affective] disorder; E03.9 Hypothyroidism, unspecified; N18.9 Chronic kidney disease, unspecified; I12.9 Hypertensive chronic kidney disease with stage 1 through stage 4 chronic kidney disease, or unspecified chronic kidney disease; Z96.651 Presence of right artificial knee joint; F10.21 Alcohol dependence, in remission; E87.79 Other fluid overload; L89.159 Pressure ulcer of sacral region, unspecified stage; R53.1 Weakness; T43.595A Adverse effect of other antipsychotics and neuroleptics, initial encounter; E78.5 Hyperlipidemia, unspecified; G47.33 Obstructive sleep apnea (adult) (pediatric); N40.0 Benign prostatic hyperplasia without lower urinary tract symptoms; K21.9 Gastro-esophageal reflux disease without esophagitis; G47.00 Insomnia, unspecified; R19.7 Diarrhea, unspecified; Z79.01 Long term (current) use of anticoagulants
CPT/HCPCS: 36410; 36415; 73562; 76604; 80048; 80053; 82550; 82805; 84145; 85027; 87040; 87493; 87505; 87635; 93005; 96360; 97110; 97162; 97166; 97530; 99223; 99232; 99285; 70450; 71045; 80320; 80329; 82140; 83605; 83735; 83880; 84132; 84439; 84443; 84484; 85014; 85018; 85025; 85610; 93010; 94640; 94660; 94667; 94668; 94760; 99233; 99239; 99291; J0295; J1644; J1940; J2543; J3480; J7620

== ENCOUNTER → 2023-04-01 07:45 | Outpatient (BNVA) | payer MEDICARE, SELFPAY | PROVIDERS: PCP Family Medicine; Referring Provider Family Medicine; Visit Provider Psychiatry & Neurology Neurology ==

== ENCOUNTER 2025-04-30 00:22 | Outpatient (CLI) | payer MEDICARE, SELFPAY ==
--- NOTE | 2025-04-30 11:05 | DI.RAD_ITS ---
Exam(s) RF BARIUM SWALLOW EXAM: RF BARIUM SWALLOW CLINICAL HISTORY: DYSPHAGIA R13.10 TECHNIQUE: 2D and realtime digital imaging was performed. CONTRAST MATERIAL: Thick and thin barium and barium tablet were administered. COMPARISON: CR,XR XR PORTABLE CHEST AP from 03/28/2023 CR,XR XR PORTABLE CHEST AP from 03/29/2023 FINDINGS: The PA and lateral chest films show normal heart size and clear lung fuentes. The lateral ec teacher view of the neck is shows degenerative changes of the discs and facet joints. Esophagus: The patient swallowed barium without difficulty. There is a prominent cricopharyngeus impression. There is a tiny Zenker diverticulum. Noevidence for mucosal erosions. Nofold thickening. No mass is visible. Nostricture. Motility: There is a normal primary stripping wave. Mild tertiary contractions were noted. There is a small sliding hiatal hernia. Severegastroesophageal reflux was observed during the exam. IMPRESSION: Prominent cricopharyngeus impression. Tiny Zenker's diverticulum. Small sliding hiatal hernia. Severe gastroesophageal reflux. RADIATION DOSE DELIVERED: tati Campos=36.4 mGy
[2025-04-30] MEDS: Barium Sulfate 700 MG TAB PO (11:11)
[2025-04-30] MEDS: Barium Sulfate 98% W/W 140 ML BTL PO (11:12)
[2025-04-30] MEDS: Barium Sulfate 60% W/V 355 ML BTL PO (11:13)
== END 2025-04-30 00:42 ==
PROVIDERS: PCP Family Medicine; Visit Provider Family Medicine
DX: K44.9 Diaphragmatic hernia without obstruction or gangrene (principal); K21.9 Gastro-esophageal reflux disease without esophagitis
CPT/HCPCS: 74221; J3490